=== PATIENT | male | born 1960 | race Caucasian/White ===

== ENCOUNTER → 2017-01-31 | Outpatient (CLI) | payer BC ==
[~2017-01-31] MED LIST: LISI10TA6 PO; [UNRECOGNIZED DRUG - OTHER]
[2017-01-31 07:23] LABS: Basophils # (auto) 0.1 uL; Basophils % (auto) 0.7 % (0.0-2.0); Eosinophils # (auto) 0.3 uL; Eosinophils % (auto) 2.6 % (0.0-7.0); Hemoglobin 16.3 g/dL (13.5-17.5); Lymphocytes % (auto) 28.8 % (10.0-50.0); Mean Corpuscular Hemoglobin 27.7 pg (28.0-32.0); Mean Corpuscular Hgb Conc. 33.2 g/dL (32.0-36.0); Mean Corpuscular Volume 83.3 fL (80.0-100.0); Mean Platelet Volume 7.4 fL (6.9-10.8); Monocytes % (auto) 9.2 % (0.0-12.0); Neutrophils # (auto) 6.1 uL; Neutrophils % (auto) 58.7 % (37.0-80.0); Nucleated Red Blood Cells % 0.1 %; Platelet Count (auto) 276 10^3/uL (140-450); Red Cell Distribution Width 13.9 % (11.8-14.3); White Blood Cell 10.4 10^3/uL (4.4-10.8)
[2017-01-31 07:59] LABS: Urine Bilirubin Negative (Negative); Urine Blood Negative /uL (Negative); Urine Color Yellow (Yellow); Urine Glucose Normal (Normal); Urine Ketone Negative (Negative); Urine Mucus FEW (None Seen); Urine Nitrite Negative (Negative); Urine RBC <1 /hpf (0 - 3); Urine Urobilinogen Normal (Negative); Urine pH 5.5 (5.0-8.0)
[2017-01-31 08:35] LABS: Albumin 4.1 g/dL (3.4-5.0); BUN/Creatinine Ratio 14.1; Bilirubin, Total 0.4 mg/dL (0.2-1.0); Calcium 9.1 mg/dL (8.5-10.1); Total Protein 7.6 g/dL (6.4-8.2)
== END | disposition home or self-care (01) ==
LOC: LAB 07:02
PROVIDERS: ATTEND Obstetrics & Gynecology
DX: E78.2 Mixed hyperlipidemia (principal); I10 Essential (primary) hypertension; R53.83 Other fatigue
CPT/HCPCS: 36415; 80053; 80061; 81001; 84153; 84443; 85025; 87086

== ENCOUNTER → 2017-12-30 | Outpatient (CLI) | payer BC ==
[2017-12-30 08:04] LABS: Basophils # (auto) 0.1 uL; Basophils % (auto) 0.6 % (0.0-2.0); Eosinophils # (auto) 0.3 uL; Eosinophils % (auto) 3.8 % (0.0-7.0); Hemoglobin 15.8 g/dL (13.5-17.5); Lymphocytes # (auto) 2.9 uL; Lymphocytes % (auto) 36.3 % (10.0-50.0); Mean Corpuscular Hemoglobin 27.5 pg (28.0-32.0); Mean Corpuscular Volume 83.5 fL (80.0-100.0); Monocytes # (auto) 0.9 uL; Neutrophils # (auto) 3.8 uL; Neutrophils % (auto) 48.3 % (37.0-80.0); Nucleated Red Blood Cells % 0.1 %; Platelet Count (auto) 263 10^3/uL (140-450); Red Blood Cells 5.75 10^6/uL (4.5-5.90); Red Cell Distribution Width 14.2 % (11.8-14.3); White Blood Cell 7.9 10^3/uL (4.4-10.8)
[2017-12-30 08:09] LABS: Urine Bacteria NONE SEEN /hpf (None Seen); Urine Blood Negative /uL (Negative); Urine Mucus FEW (None Seen); Urine Specific Gravity 1.022 (1.001-1.035); Urine WBC 1 /hpf (0 - 3)
[2017-12-30 08:55] LABS: Calcium 8.9 mg/dL (8.5-10.1)
[2017-12-30 09:01] LABS: Bilirubin, Total 0.5 mg/dL (0.2-1.0); Total Protein 7.3 g/dL (6.4-8.2)
[2017-12-30 10:52] LABS: BUN/Creatinine Ratio 17.6
== END | disposition home or self-care (01) ==
LOC: LAB 07:36
PROVIDERS: ATTEND Family Medicine
DX: E55.9 Vitamin D deficiency, unspecified (principal); I10 Essential (primary) hypertension; E78.2 Mixed hyperlipidemia
CPT/HCPCS: 36415; 80053; 80061; 81001; 82306; 82607; 83036; 84443; 85025

== ENCOUNTER → 2018-08-16 | Outpatient (CLI) | payer BC ==
[~2018-08-16] VITALS: Ht 162.6 cm; Wt 93.0 kg
[~2018-08-16] MED LIST changes: +ADENOSINE 78 MG in GIVE UN-DILUTED 0 ML IV STA
== END | disposition home or self-care (01) ==
LOC: XY 07:33
PROVIDERS: ATTEND Internal Medicine
DX: R07.9 Chest pain, unspecified (principal); R00.0 Tachycardia, unspecified; I10 Essential (primary) hypertension
CPT/HCPCS: 78452; 93017; 93306; A9500; J0153

== ENCOUNTER → 2018-12-26 | Outpatient (CLI) | payer BC ==
[~2018-12-26] MED LIST changes: -ADENOSINE 78 MG in GIVE UN-DILUTED 0 ML IV STA
[2018-12-26 10:42] LABS: Urine WBC None Seen /hpf (0 - 3)
[2018-12-26 10:57] LABS: Basophils # (auto) 0.1 uL; Basophils % (auto) 0.8 % (0.0-2.0); Eosinophils # (auto) 0.3 uL; Eosinophils % (auto) 3.3 % (0.0-7.0); Hematocrit 50.4 % (41.0-53.0); Hemoglobin 16.4 g/dL (13.5-17.5); Lymphocytes # (auto) 2.6 uL; Lymphocytes % (auto) 32.4 % (10.0-50.0); Mean Corpuscular Hemoglobin 27.4 pg (28.0-32.0); Mean Corpuscular Hgb Conc. 32.5 g/dL (32.0-36.0); Mean Corpuscular Volume 84.2 fL (80.0-100.0); Monocytes # (auto) 0.8 uL; Monocytes % (auto) 9.7 % (0.0-12.0); Neutrophils # (auto) 4.3 uL; Neutrophils % (auto) 53.8 % (37.0-80.0); Nucleated Red Blood Cells % 0.1 %; Platelet Count (auto) 251 10^3/uL (140-450); Red Blood Cells 5.99 10^6/uL (4.5-5.90); Red Cell Distribution Width 14.2 % (11.8-14.3); White Blood Cell 8.1 10^3/uL (4.4-10.8)
[2018-12-26 10:58] LABS: Urine Bacteria NONE SEEN /hpf (None Seen); Urine Blood Negative /uL (Negative); Urine Specific Gravity 1.017 (1.001-1.035)
[2018-12-26 11:24] LABS: Albumin 4.1 g/dL (3.4-5.0); Potassium 4.6 mmol/L (3.5-5.1)
[2018-12-26 11:33] LABS: BUN/Creatinine Ratio 14.3; Bilirubin, Total 0.5 mg/dL (0.2-1.0); Calcium 9.2 mg/dL (8.5-10.1); Total Protein 7.6 g/dL (6.4-8.2)
== END | disposition home or self-care (01) ==
LOC: LAB 10:04
PROVIDERS: ATTEND Family Medicine
DX: E78.2 Mixed hyperlipidemia (principal); I10 Essential (primary) hypertension; R00.0 Tachycardia, unspecified; E66.9 Obesity, unspecified
CPT/HCPCS: 36415; 80053; 80061; 81001; 84153; 85025

== ENCOUNTER → 2019-10-01 | Outpatient (CLI) | payer BC ==
[2019-10-01 08:22] LABS: Basophils # (auto) 0.1 10 ^3/uL (0-0.2); Basophils % (auto) 1.1 % (0.0-2.0); Eosinophils # (auto) 0.3 10 ^3/uL (0-0.8); Eosinophils % (auto) 4.6 % (0.0-7.0); Hemoglobin 15.5 g/dL (13.5-17.5); Lymphocytes # (auto) 1.9 10 ^3/uL (0.4-5.4); Lymphocytes % (auto) 29.2 % (10.0-50.0); Mean Corpuscular Hemoglobin 27.3 pg (28.0-32.0); Mean Corpuscular Hgb Conc. 32.3 g/dL (32.0-36.0); Mean Corpuscular Volume 84.6 fL (80.0-100.0); Monocytes % (auto) 15.1 % (0.0-12.0); Neutrophils # (auto) 3.2 10 ^3/uL (1.6-8.6); Platelet Count (auto) 203 10^3/uL (140-450); Red Blood Cells 5.67 10^6/uL (4.5-5.90); Red Cell Distribution Width 13.8 % (11.8-14.3); White Blood Cell 6.5 10^3/uL (4.4-10.8)
[2019-10-01 09:19] LABS: Albumin 3.7 g/dL (3.4-5.0); Calcium 9.1 mg/dL (8.5-10.1); Potassium 4.4 mmol/L (3.5-5.1)
[2019-10-01 09:24] LABS: BUN/Creatinine Ratio 18.1; Bilirubin, Total 0.4 mg/dL (0.2-1.0); Total Protein 7.2 g/dL (6.4-8.2)
== END | disposition home or self-care (01) ==
LOC: LAB 08:10
PROVIDERS: ATTEND Family Medicine
DX: I10 Essential (primary) hypertension (principal); E78.2 Mixed hyperlipidemia; K21.9 Gastro-esophageal reflux disease without esophagitis; E55.9 Vitamin D deficiency, unspecified
CPT/HCPCS: 36415; 80053; 80061; 82306; 85025

== ENCOUNTER → 2021-03-25 | Outpatient (CLI) | payer BC ==
[~2021-03-25] MED LIST changes: +LISI-716 PO; -LISI10TA6 PO
[2021-03-25 09:29] LABS: Basophils # (auto) 0 10 ^3/uL (0-0.2); Basophils % (auto) 0.6 % (0.0-2.0); Eosinophils # (auto) 0.2 10 ^3/uL (0-0.8); Eosinophils % (auto) 2.9 % (0.0-7.0); Hematocrit 45.3 % (41.0-53.0); Hemoglobin 15.2 g/dL (13.5-17.5); Lymphocytes # (auto) 2.5 10 ^3/uL (0.4-5.4); Lymphocytes % (auto) 34.5 % (10.0-50.0); Mean Corpuscular Hemoglobin 27.9 pg (28.0-32.0); Mean Corpuscular Hgb Conc. 33.6 g/dL (32.0-36.0); Mean Corpuscular Volume 83.1 fL (80.0-100.0); Monocytes # (auto) 0.8 10 ^3/uL (0-1.3); Monocytes % (auto) 10.7 % (0.0-12.0); Neutrophils # (auto) 3.7 10 ^3/uL (1.6-8.6); Neutrophils % (auto) 51.3 % (37.0-80.0); Nucleated Red Blood Cells % 0.2 %; Red Blood Cells 5.45 10^6/uL (4.5-5.90); Red Cell Distribution Width 13.6 % (11.8-14.3); White Blood Cell 7.3 10^3/uL (4.4-10.8)
[2021-03-25 09:59] LABS: Urine Bacteria NONE SEEN /hpf (None Seen); Urine Blood Negative /uL (Negative); Urine Mucus FEW (None Seen); Urine Specific Gravity 1.019 (1.001-1.035); Urine WBC 1 /hpf (0 - 3)
[2021-03-25 11:19] LABS: BUN/Creatinine Ratio 15.3; Calcium 9.1 mg/dL (8.5-10.1); Potassium 4.3 mmol/L (3.5-5.1)
[2021-03-25 11:48] LABS: Bilirubin, Total 0.4 mg/dL (0.2-1.0); Total Protein 7.1 g/dL (6.4-8.2)
== END | disposition home or self-care (01) ==
LOC: LAB 08:43
PROVIDERS: ATTEND Family Medicine
DX: E78.2 Mixed hyperlipidemia (principal); I10 Essential (primary) hypertension; K21.9 Gastro-esophageal reflux disease without esophagitis; E55.9 Vitamin D deficiency, unspecified; E66.9 Obesity, unspecified
CPT/HCPCS: 36415; 80053; 80061; 81001; 82306; 84153; 85025

== ENCOUNTER → 2021-05-06 | Outpatient (CLI) | payer BC | END | disposition home or self-care (01) | LOC: LAB 12:24 | PROVIDERS: ATTEND Student in an Organized Health Care Education/Training Program | DX: Z00.00 Encounter for general adult medical examination without abnormal findings (principal) | CPT/HCPCS: 82274 ==

== ENCOUNTER → 2022-02-11 | Outpatient (CLI) | payer BC ==
[2022-02-11 08:57] LABS: Urine Blood Negative /uL (Negative); Urine Specific Gravity 1.015 (1.001-1.035)
[2022-02-11 08:58] LABS: Basophils # (auto) 0.1 10 ^3/uL (0-0.2); Basophils % (auto) 0.7 % (0.0-2.0); Eosinophils # (auto) 0.2 10 ^3/uL (0-0.8); Hematocrit 49.1 % (41.0-53.0); Hemoglobin 15.9 g/dL (13.5-17.5); Lymphocytes # (auto) 3.3 10 ^3/uL (0.4-5.4); Lymphocytes % (auto) 41.2 % (10.0-50.0); Mean Corpuscular Hgb Conc. 32.4 g/dL (32.0-36.0); Mean Corpuscular Volume 83.4 fL (80.0-100.0); Monocytes # (auto) 0.7 10 ^3/uL (0-1.3); Neutrophils # (auto) 3.7 10 ^3/uL (1.6-8.6); Neutrophils % (auto) 46.1 % (37.0-80.0); Nucleated Red Blood Cells % 0.1 %; Red Blood Cells 5.89 10^6/uL (4.5-5.90); Red Cell Distribution Width 13.7 % (11.8-14.3); White Blood Cell 8.1 10^3/uL (4.4-10.8)
[2022-02-11 10:04] LABS: Potassium 4.1 mmol/L (3.5-5.1)
[2022-02-11 10:12] LABS: Albumin 3.8 g/dL (3.4-5.0); Bilirubin, Total 0.6 mg/dL (0.2-1.0); Calcium 9.6 mg/dL (8.5-10.1); Total Protein 7.5 g/dL (6.4-8.2)
[2022-02-11 10:33] LABS: Free T4 (Free Thyroxine) 1.1 ng/dL (0.89-1.76)
[2022-02-11 10:34] LABS: Prostate Specific Antigen 1.51 ng/mL (0.0-4.0)
[2022-02-11 13:49] LABS: Hepatitis B Surface Antibody Negative (Negative)
[2022-02-11 14:20] LABS: Hepatitis A Total Antibody Positive (Negative)
[2022-02-11 14:42] LABS: Hepatitis C Antibody Negative (Negative)
== END | disposition home or self-care (01) ==
LOC: LAB 08:36
PROVIDERS: ATTEND Internal Medicine
DX: I10 Essential (primary) hypertension (principal)
CPT/HCPCS: 36415; 80053; 80061; 81001; 82043; 82274; 82306; 82607; 83036; 84153; 84439; 84443; 85025; 86704; 86706; 86708; 86803; 87340

== ENCOUNTER → 2022-10-11 | Outpatient (CLI) | payer BC ==
[~2022-10-11] MED LIST changes: -LISI-716 PO; +LISI10TA34 PO
[2022-10-11 06:55] LABS: Basophils # (auto) 0.1 10 ^3/uL (0-0.2); Basophils % (auto) 1.1 % (0.0-2.0); Eosinophils # (auto) 0.4 10 ^3/uL (0-0.8); Eosinophils % (auto) 4.3 % (0.0-7.0); Hematocrit 45.3 % (41.0-53.0); Hemoglobin 15.2 g/dL (13.5-17.5); Lymphocytes # (auto) 3.5 10 ^3/uL (0.4-5.4); Mean Corpuscular Hemoglobin 27.8 pg (28.0-32.0); Mean Corpuscular Hgb Conc. 33.5 g/dL (32.0-36.0); Mean Corpuscular Volume 82.9 fL (80.0-100.0); Monocytes # (auto) 0.9 10 ^3/uL (0-1.3); Monocytes % (auto) 11.3 % (0.0-12.0); Neutrophils # (auto) 3.3 10 ^3/uL (1.6-8.6); Neutrophils % (auto) 40.3 % (37.0-80.0); Nucleated Red Blood Cells % 0.2 %; Red Blood Cells 5.46 10^6/uL (4.5-5.90); White Blood Cell 8.2 10^3/uL (4.4-10.8)
[2022-10-11 07:31] LABS: Cholesterol 178 mg/dL (< 200); HDL Cholesterol 35 mg/dL (40-59); LDL Cholesterol 111 mg/dL (< 100); Triglycerides 205 mg/dL (< 150)
[2022-10-11 07:35] LABS: Albumin 3.5 g/dL (3.4-5.0); Calcium 8.6 mg/dL (8.5-10.1); Potassium 3.9 mmol/L (3.5-5.1)
[2022-10-11 07:38] LABS: BUN/Creatinine Ratio 18.6 (10.0-20.0); Bilirubin, Total 0.4 mg/dL (0.2-1.0); Total Protein 6.6 g/dL (6.4-8.2)
== END | disposition home or self-care (01) ==
LOC: LAB 06:39
PROVIDERS: ATTEND Internal Medicine
DX: I10 Essential (primary) hypertension (principal)
CPT/HCPCS: 36415; 80053; 80061; 82306; 82607; 83036; 85025

== ENCOUNTER 2023-03-16 13:07 | Day surgery (SDC) | payer BC ==
[2023-03-11 09:47] LABS: Basophils # (auto) 0.1 10 ^3/uL (0-0.2); Basophils % (auto) 0.6 % (0.0-2.0); Eosinophils # (auto) 0.3 10 ^3/uL (0-0.8); Eosinophils % (auto) 3.1 % (0.0-7.0); Hematocrit 47.2 % (41.0-53.0); Hemoglobin 15.5 g/dL (13.5-17.5); Lymphocytes # (auto) 2.9 10 ^3/uL (0.4-5.4); Mean Corpuscular Hemoglobin 27.5 pg (28.0-32.0); Mean Corpuscular Hgb Conc. 32.8 g/dL (32.0-36.0); Mean Corpuscular Volume 83.9 fL (80.0-100.0); Monocytes # (auto) 0.8 10 ^3/uL (0-1.3); Monocytes % (auto) 8.5 % (0.0-12.0); Neutrophils # (auto) 5.1 10 ^3/uL (1.6-8.6); Neutrophils % (auto) 55.8 % (37.0-80.0); Red Blood Cells 5.63 10^6/uL (4.5-5.90); Red Cell Distribution Width 13.8 % (11.8-14.3); White Blood Cell 9.1 10^3/uL (4.4-10.8)
[2023-03-11 10:16] LABS: INR 1.02 (0.9-1.15); Partial Thromboplastin Time 29.3 SEC (24.5-34.5); Prothrombin Time 10.7 sec (9.3-11.8)
[2023-03-11 11:02] LABS: Alanine Aminotransferase 19 U/L (7-40); Albumin 4.4 g/dL (3.2-4.8); Alkaline Phosphatase 90 U/L (46-116); Anion Gap 9 (5-15); Aspartate Aminotransferase 17 U/L (13-40); BUN/Creatinine Ratio 9.3 (10.0-20.0); Blood Urea Nitrogen 8 mg/dL (9-23); Calcium 9.6 mg/dL (8.5-10.1); Carbon Dioxide 24 mmol/L (20-30); Chloride 107 mmol/L (98-107); Glucose 105 mg/dL (74-106); Potassium 4.6 mmol/L (3.5-5.1); Sodium 140 mmol/L (136-145)
[2023-03-11 11:03] LABS: Bilirubin, Total 0.4 mg/dL (0.2-1.0); Total Protein 6.8 g/dL (5.7-8.2)
[~2023-03-16] VITALS: Ht 165.1 cm; Wt 91.6 kg
[~2023-03-16 13:07] MED LIST changes: +PANT40TA2 PO; +SIMV40TA18 PO; -[UNRECOGNIZED DRUG - OTHER]
[2023-03-16] MEDS ORDERED: SODIUM CHLORIDE LOCK 10 ML ONE (13:49)
[2023-03-16] MEDS ORDERED: MIDAZOLAM HCL 5 MG/ML-1ML VIAL ONE (13:49)
[2023-03-16] MEDS ORDERED: fentaNYL CITRATE 100 MCG/2 ML VL ONE (13:50)
[2023-03-16 14:14] VITALS: PULSE 70; RESP 14; O2SAT 99
[2023-03-16] MEDS: diphenhdrAMINE HCL 50 MG/1 ML VL ONE ×2 (14:20→14:23)
[2023-03-16 14:40] VITALS: PULSE 76; RESP 15; O2SAT 97
[2023-03-16 15:10] VITALS: BP 129/88; PULSE 72; RESP 10; O2SAT 95
== END 2023-03-16 15:30 | disposition home or self-care (01) ==
LOC: GI 13:07
PROVIDERS: ATTEND Internal Medicine Gastroenterology
DX: K92.1 Melena (principal); K64.0 First degree hemorrhoids; K64.4 Residual hemorrhoidal skin tags; K63.5 Polyp of colon; K62.89 Other specified diseases of anus and rectum; K52.9 Noninfective gastroenteritis and colitis, unspecified
CPT/HCPCS: 36415; 45380; 80053; 85025; 85610; 85730; 88305; J1200; J2250; J3010; J7030; 99152

== ENCOUNTER 2025-01-16 12:08 | Outpatient (CLI) | payer BC ==
[2025-01-16 12:49] LABS: Hematocrit 49.4 % (41.0-53.0); Hemoglobin 16.5 g/dL (13.5-17.5); Mean Corpuscular Hemoglobin 27.7 pg (28.0-32.0); Mean Corpuscular Volume 83.0 fL (80.0-100.0); Nucleated Red Blood Cells % 0.1 %
[2025-01-16 13:07] LABS: Cholesterol 179 mg/dL (< 200); HDL Cholesterol 40 mg/dL (40-59); Triglycerides 196 mg/dL (< 150)
[2025-01-16 13:08] LABS: Urine Protein, UAD Negative (Negative)
== END 2025-01-16 17:00 | disposition home or self-care (01) ==
LOC: LAB 12:08
PROVIDERS: ATTEND Internal Medicine
DX: I10 Essential (primary) hypertension (principal)
CPT/HCPCS: 36415; 80061; 81001; 82043; 83036; 84153; 84403; 84443; 85025

== ENCOUNTER 2025-02-01 02:46 | Inpatient (IN) | payer BC ==
[~2025-02-01] VITALS: Ht 165.1 cm; Wt 95.0 kg
[2025-02-01] VITALS (8 sets, daily range): BP systolic 114–137; BP diastolic 74–98; PULSE 69–80; RESP 13–18; TEMP 98.4–99.2; O2SAT 95–97
--- NOTE | 2025-02-01 03:27 | ED.PDOC ---
History of Present Illness HPI Comments 64-year-old male who came to ER for shortness of breath. Patient states 2 days ago, he started experiencing urinary symptoms, urinary frequency and dribbling. Noted low-grade fever to 100.7 F, self-medicated with Tylenol. At around 2:00 a.m. today, patient woke up due to sudden-onset shortness of breath, chills, body aches and drowsiness. Patient works as a straight truck driver. REVIEW OF SYSTEMS: General: (+) fever, no chills, or fatigue HEENT: No sore throat, no earache, no congestion, no neck pain. Cardiac: No chest pain. No palpitations. Lungs: (+) shortness of breath, no cough. GI: No nausea, no vomiting, no diarrhea, no constipation, no abdominal pain : No dysuria, (+) frequency, or urgency. No hematuria. Musculoskeletal: No joint pain , no joint swelling, no extremity edema. Skin: No rash, no itching. Neuro: No headache, no dizziness, no weakness EXAM: General: Awake, alert and oriented. No acute distress. Skin: Skin in warm, dry and intact. Appropriate color for ethnicity. HEENT: The head is normocephalic and atraumatic. Conjunctivae are clear without exudates or hemorrhage. Sclera is non-icteric. EOM are intact. No signs of nystagmus. Eyelids are normal in appearance without swelling or lesions. Oral mucosa is pink and moist Neck: The neck is supple with normal range of motion. No JVD. Cardiac: Rapid rate, regular rhythm. No murmurs, gallops, or rubs are auscultated. Respiratory: No signs of respiratory distress. Lung sounds are clear in all lobes bilaterally without rales, rhonchi, or wheezes. Abdominal: Abdomen is soft, non-tender without distention. Bowel sounds are present and normoactive in all four quadrants. Extremities: Upper and lower extremities are atraumatic in appearance without deformity or edema. Neurological: The patient is awake, alert and oriented to person, place, and time with normal speech. Speech is clear. There is no facial asymmetry. Psychiatric: Appropriate mood and affect. Good judgement and insight Chief Complaint: Shortness of Breath Time Seen by MD: 03:26 Reviewed Notes: Nurses Notes Allergies: Coded Allergies: NO KNOWN ALLERGIES (Unverified , 06/26/12) Home Meds Reported Medications Pantoprazole Sodium Sesquihydr (Protonix) 40 Mg Tab, 40 MG PO DAILY, #30 TAB 03/11/23 Simvastatin (Simvastatin) 40 Mg Tab, 40 MG PO QPM, TAB 03/11/23 Lisinopril (Lisinopril) 10 Mg Tab, 10 MG PO 06/26/12 Information Source: Patient Mode of Arrival: Ambulatory Past Medical History PAST MEDICAL HISTORY: High Lipids, HTN Surgical History: Denies all surgeries Family History Family History: Reviewed,noncontributory to illness Social History Smoker: Non-Smoker Alcohol: Denies ETOH Use Drugs: Denies Drug Use Lives In: Home Was a procedure done? Was a procedure done?: No EKG EKG : Pulse Rate (adult): 101 Cardiac Rhythm: ST Differential Dx Considerations may include: Anemia, electrolyte imbalance, urinary tract infection, upper respiratory infection, influenza, viral syndrome X-Ray, Labs, Meds, VS Vital Signs Date Time Temp Pulse Resp B/P (MAP) Pulse Ox O2 Delivery O2 Flow Rate FiO2 02/01/25 04:24 101 02/01/25 04:21 101 02/01/25 02:48 98.7 133 26 160/90 94 98.7 Lab Test 02/01/25 04:04 02/01/25 04:02 02/01/25 03:49 02/01/25 03:04 Range/Units Troponin I High Sensitivity 53 8 </=54 ng/L Lactic Acid Level 2.0 5.5 *H 0.4-2.0 mmol/L Urine Color Brown H Yellow Urine Clarity Ex.turbid Clear Urine pH 5.5 5.0-9.0 Urine Specific [place] 1.027 1.001-1.035 Urine Protein 2+ H Negative Urine Ketones 1+ H Negative Urine Blood 3+ H Negative /uL Urine Nitrite Negative Negative Urine Bilirubin Negative Negative Urine Urobilinogen Normal Negative mg/dL Urine Leukocyte Esterase 3+ Negative /uL Urine RBC 2658 0 - 3 /hpf Urine WBC Clumps Present None Seen /hpf Urine Microscopic WBC 576 H 0-3 /HPF Urine Squamous Epithelial Cells Few <5 /hpf Urine Bacteria None seen None Seen /hpf Urine Hyaline Casts Few 0 - 2 /lpf Urine Mucus Moderate None Seen Urine Glucose Trace Normal mg/dL White Blood Count 11.4 H 4.4-10.8 10^3/uL Red Blood Count 5.64 4.5-5.90 10^6/uL Hemoglobin 15.5 13.5-17.5 g/dL Hematocrit 47.2 41.0-53.0 % Mean Corpuscular Volume 83.6 80.0-100.0 fL Mean Corpuscular Hemoglobin 27.5 L 28.0-32.0 pg Mean Corpuscular Hemoglobin Concent 32.9 32.0-36.0 g/dL Red Cell Distribution Width 13.8 11.8-14.3 % Platelet Count 190 140-450 10^3/uL Mean Platelet Volume 8.4 6.9-10.8 fL Neutrophils (%) (Auto) 76.7 37.0-80.0 % Lymphocytes (%) (Auto) 20.9 10.0-50.0 % Monocytes (%) (Auto) 1.6 0.0-12.0 % Eosinophils (%) (Auto) 0.5 0.0-7.0 % Basophils (%) (Auto) 0.3 0.0-2.0 % Neutrophils # (Auto) 8.7 H 1.6-8.6 10 ^3/uL Lymphocytes # (Auto) 2.4 0.4-5.4 10 ^3/uL Monocytes # (Auto) 0.2 0-1.3 10 ^3/uL Eosinophils # (Auto) 0.1 0-0.8 10 ^3/uL Basophils # (Auto) 0 0-0.2 10 ^3/uL Nucleated Red Blood Cells 0.1 % D-Dimer, Quantitative 0.82 H 0.0-0.49 mg/L FEU Sodium Level 138 136-145 mmol/L Potassium Level 4.0 3.5-5.1 mmol/L Chloride Level 102 98-107 mmol/L Carbon Dioxide Level 20 20-31 mmol/L Anion Gap 16 H 5-15 Blood Urea Nitrogen 17 9-23 mg/dL Creatinine 1.20 0.700-1.30 mg/dL Glomerular Filtration Rate Calc 67 >90 mL/min BUN/Creatinine Ratio 14.2 10.0-20.0 Serum Glucose 142 H 74-106 mg/dL Calcium Level 9.6 8.7-10.4 mg/dL Total Bilirubin 1.1 H 0.2-1.0 mg/dL Aspartate Amino Transferase (AST) 17 13-40 U/L Alanine Aminotransferase (ALT) 16 7-40 U/L Alkaline Phosphatase 108 46-116 U/L B-Type Natriuretic Peptide 38.43 0-100 pg/mL Total Protein 7.5 5.7-8.2 g/dL Albumin 4.6 3.2-4.8 g/dL CHEST RADIOGRAPH Indication: cp Technique: Single frontal view of the chest was obtained Comparison: None FINDINGS: Lines and Tubes: None Lungs: No focal consolidation. Pleura: No effusion. No pneumothorax. Cardiomediastinal contours: Unremarkable Bones: No acute osseous abnormality. IMPRESSION: 1. No acute cardiopulmonary disease. Time of 1ST Reevaluation: 03:18 Reevaluation 1ST: Unchanged Patient Education/Counseling: Need For Follow Up Family Education/Counseling: No Family Present Change of Shift?: Yes (Signed out to Dr. Bass pending CT angiogram results and disposition.) SEPSIS Sepsis Screen Date sepsis recognized/suspect: Feb 01, 2025 Time Sepsis recognized/suspect: 250 Recent Procedure: No On Antibiotic Therapy: No Respiratory Rate >20: Yes Heart Rate >90: Yes Temp<36 C (96.8 F) or >38.3 C: No SBP <90 or MAP <65 mmHG: No New Acute Mental Status Change: No Is the patient on CPAP, BIPAP,: No Physician Orders Blood Culture (02/01/25 02:53) Chest Xray 1 View (02/01/25 03:33) Vital Signs Q1HR (02/01/25 03:33) Covid19 Antigen Lisa (02/01/25 ) Rapid Influenza A&B (02/01/25 03:33) Electrocardigram (02/01/25 04:33) Electrocardigram (02/01/25 06:33) Troponin-I Hs (02/01/25 06:33) Ct Angio Chest Contrast (02/01/25 04:48) Vital Signs Date Time Temp Pulse Resp B/P (MAP) Pulse Ox O2 Delivery O2 Flow Rate FiO2 02/01/25 04:24 101 02/01/25 04:21 101 02/01/25 02:48 98.7 133 26 160/90 94 98.7 Laboratory Tests Test 02/01/25 03:04 02/01/25 04:02 Lactic Acid Level 5.5 mmol/L (0.4-2.0) *H 2.0 mmol/L (0.4-2.0) White Blood Count 11.4 10^3/uL (4.4-10.8) H Critical Care Note Critical Care Time?: No Stability Stability form required: No Heart Score Heart Score: Heart Score Response (Comments) Value History N/A 0 EKG N/A 0 Age N/A 0 Risk Factors N/A 0 Troponin N/A 0 Total 0 I personally scribed for THADDEUS RENTERIA MD ([email or web address]) on 02/01/25 at 03:27. Electronically submitted by Errol Black ([employer]). I personally scribed for THADDEUS RENTERIA MD ([email or web address]) on 02/01/25 at 04:24. Electronically submitted by Errol Black ([employer]). I personally scribed for THADDEUS RENTERIA MD ([email or web address]) on 02/01/25 at 04:50. Electronically submitted by Errol Black ([employer]). THADDEUS RENTERIA MD Feb 01, 2025 03:27
[2025-02-01 03:40] LABS: Alanine Aminotransferase 16 U/L (7-40); Albumin 4.6 g/dL (3.2-4.8); Alkaline Phosphatase 108 U/L (46-116); Anion Gap 16 (5-15); BUN/Creatinine Ratio 14.2 (10.0-20.0); Blood Urea Nitrogen 17 mg/dL (9-23); Calcium 9.6 mg/dL (8.7-10.4); Carbon Dioxide 20 mmol/L (20-31); Chloride 102 mmol/L (98-107); Potassium 4.0 mmol/L (3.5-5.1); Sodium 138 mmol/L (136-145); Total Protein 7.5 g/dL (5.7-8.2)
[2025-02-01 03:41] LABS: Bilirubin, Total 1.1 mg/dL (0.2-1.0)
[2025-02-01 03:43] LABS: Hematocrit 47.2 % (41.0-53.0); Hemoglobin 15.5 g/dL (13.5-17.5); Mean Corpuscular Hemoglobin 27.5 pg (28.0-32.0); Mean Corpuscular Volume 83.6 fL (80.0-100.0); Nucleated Red Blood Cells % 0.1 %
[2025-02-01 03:46] LABS: Glucose 142 mg/dL (74-106); Lactic Acid w/Reflex 5.5 mmol/L (0.4-2.0)
--- NOTE | 2025-02-01 04:05 | DVH ---
CHEST RADIOGRAPH Indication: cp Technique: Single frontal view of the chest was obtained Comparison: None FINDINGS: Lines and Tubes: None Lungs: No focal consolidation. Pleura: No effusion. No pneumothorax. Cardiomediastinal contours: Unremarkable Bones: No acute osseous abnormality. IMPRESSION: 1. No acute cardiopulmonary disease.
--- NOTE | 2025-02-01 04:22 | ECG ---
[facility] Test Date: 2025-02-01 Test Time: 04:21:06 Pat Name: SABINE AGUILAR Department: ED Room: [address] [place] [address] Gender: M Service Desk Associate: ROLANDO : 1960 Requested By: THADDEUS RENTERIA Order Number: [id number] Reading MD: Dallas Hurd Measurements Intervals [place] Rate: 101 P: 3 PA: 163 QRS: 10 QRSD: 102 T: 20 QT: 338 QTc: 439 Interpretive Statements Sinus tachycardia Abnormal R-wave progression, late transition Electronically Signed On 02-01-2025 9:10:55 PST by Dallas Hurd Please click the below link to view image of tracing.
[2025-02-01 04:26] LABS: Urine Protein, UAD 2+ (Negative); Urine WBC Clumps PRESENT /hpf (None Seen)
--- NOTE | 2025-02-01 06:34 | DVH ---
CTA Chest with intravenous contrast INDICATION: Shortness of br. Elevated D-dimer, rule out pulmonary embolism. COMPARISON: XY CHEST XRAY 1 VIEW on DOS: 02/01/25 TECHNIQUE: Multidetector spiral CTA of the chest was performed of the chest with 100 cc of omnipaque 350 intravenous contrast. PULMONARY ANGIOGRAPHY PROTOCOL was utilized using a bolus-tracking technique centered on the main pulmonary artery. Coronal and sagittal multiplanar and MIP reformats were performed. Radiation Dose : 1. Chest: CTDI volume is 26.97 mGy. Dose-length product is 2.89 mGy*cm The dose indicators for CT are the volume Computed Tomography (CT) Dose Index (CTDIvol) and the Dose Length Product (DLP), and are measured in units of mGy and mGy-cm, respectively. These indicators are not patient dose, but values generated from the CT scanner acquisition factors. The report includes radiation exposure data for exposures received during this examination. FINDINGS: Pulmonary artery: No central, lobar or proximal segmental pulmonary embolus. Normal size main pulmonary artery. Lower neck: Unremarkable. Lungs: No suspicious lung nodule. No airspace disease. Central airways: Patent. Pleura: No pneumothorax. No pleural effusions. Heart/Vascular Structures: The heart is normal in size. No pericardial effusion. Thoracic aorta is normal in caliber. No aneurysm or dissection. Lymph Nodes: No mediastinal or hilar lymphadenopathy. Esophagus: Grossly unremarkable. Musculoskeletal: Unremarkable. Body wall: Unremarkable. Upper abdomen: Unremarkable. IMPRESSION: 1. No evidence of pulmonary embolism. 2. No acute or significant intrathoracic abnormalities.
[2025-02-01] MEDS: AZITHROMYCIN 250 MG TAB PO ONE ×2 (07:05→07:15)
--- NOTE | 2025-02-01 07:11 | DVHHPRES ---
History of Present Illness Resident Creating Document: WHITNEY ERNST RESIDENT History of Present Illness This is a 64-year-old male with past medical history of hypertension, hyperlipidemia presented to the ED with a chief complaint of fever, chills, burning sensation and blood in the urine for last 2 days prior to this visit. Patient States that he started having fever and chills, highest temperature recorded in home at more than 101, frequency, burning sensation in the urine and 1 episodes of blood in the urine. He also complaint of left leg pain, cough and shortness of breath for the same duration. He denies chest pain, hemoptysis, abdominal pain, nausea, vomiting, recent positive sick contact. PCP: Dr. Hylton Past Medical History Hypertension, hyperlipidemia Past Surgical History Denies any surgical history Family History No significant family history Past Social History Lives with family Nonsmoker, nonalcoholic and never tried any drugs Review of Systems Constitutional: Yes: Fever; No: Chills, Sweats, Weakness, Malaise, Other Eyes: No: Pain, Vision change, Conjunctivae inflammation, Eyelid inflammation, Other, Redness ENT: No: Ear pain, Ear discharge, Nose pain, Nose discharge, Nose congestion, Mouth pain, Mouth swelling, Throat pain, Throat swelling, Other Respiratory: Cough, Shortness of breath Cardiovascular: No: Chest Pain, Palpitations, Orthopnea, Paroxysmal Noc. Dyspnea, Edema, Lt Headedness, Other Gastrointestinal: No: Nausea, Vomiting, Abdominal Pain, Diarrhea, Constipation, Melena, Hematochezia, Other Genitourinary: Dysuria, Frequency; No Incontinence; Hematuria; No Retention, No Other Musculoskeletal: No: other, neck pain, shoulder pain, arm pain, back pain, hand pain, leg pain, foot pain Skin: No: Rash, Lesions, Jaundice, Bruising, Other Neurological: No: Weakness, Numbness, Incoordination, Change in speech, Confus ion, Seizures, Other Allergies: Coded Allergies: NO KNOWN ALLERGIES (Unverified , 06/26/12) Exam Vital Signs Vital Signs Date Time Temp Pulse Resp B/P (MAP) Pulse Ox O2 Delivery O2 Flow Rate FiO2 02/01/25 04:24 101 02/01/25 02:48 98.7 26 160/90 94 98.7 Exam Physical examination: General Appearance: Alert, Oriented X3, Cooperative, mild distress HEENT: Atraumatic, PERRLA, EOMI, Mucous membrane moist/pink Respiratory: Clear to auscultation, Normal air movement Cardiovascular: Regular rate, Normal S1, Normal S2, No murmurs, no chest wall tenderness Abdominal: Normal bowel sounds, Soft, No tenderness, No hepatospenomegaly, No masses Extremities: No clubbing, No cyanosis, No edema, Normal pulses, No tenderness/swelling Skin: No rashes, No breakdown, No significant lesion Neuro: Normal speech, Strength at 5/5 X4 ext, Normal tone, Sensation intact, Cranial nerves 3-12 NL, Reflexes 2+ Psych/Mental Status: Mental status NL, Mood NL Labs/Xrays Labs Test 02/01/25 06:48 02/01/25 04:02 02/01/25 03:49 02/01/25 03:04 Range/Units Lactic Acid Level 2.0 0.4-2.0 mmol/L Urine Color Brown H Yellow Urine Clarity Ex.turbid Clear Urine pH 5.5 5.0-9.0 Urine Specific [place] 1.027 1.001-1.035 Urine Protein 2+ H Negative Urine Ketones 1+ H Negative Urine Blood 3+ H Negative /uL Urine Nitrite Negative Negative Urine Bilirubin Negative Negative Urine Urobilinogen Normal Negative mg/dL Urine Leukocyte Esterase 3+ Negative /uL Urine RBC 2658 0 - 3 /hpf Urine WBC Clumps Present None Seen /hpf Urine Microscopic WBC 576 H 0-3 /HPF Urine Squamous Epithelial Cells Few <5 /hpf Urine Bacteria None seen None Seen /hpf Urine Hyaline Casts Few 0 - 2 /lpf Urine Mucus Moderate None Seen Urine Glucose Trace Normal mg/dL White Blood Count 11.4 H 4.4-10.8 10^3/uL Red Blood Count 5.64 4.5-5.90 10^6/uL Hemoglobin 15.5 13.5-17.5 g/dL Hematocrit 47.2 41.0-53.0 % Mean Corpuscular Volume 83.6 80.0-100.0 fL Mean Corpuscular Hemoglobin 27.5 L 28.0-32.0 pg Mean Corpuscular Hemoglobin Concent 32.9 32.0-36.0 g/dL Red Cell Distribution Width 13.8 11.8-14.3 % Platelet Count 190 140-450 10^3/uL Mean Platelet Volume 8.4 6.9-10.8 fL Neutrophils (%) (Auto) 76.7 37.0-80.0 % Lymphocytes (%) (Auto) 20.9 10.0-50.0 % Monocytes (%) (Auto) 1.6 0.0-12.0 % Eosinophils (%) (Auto) 0.5 0.0-7.0 % Basophils (%) (Auto) 0.3 0.0-2.0 % Neutrophils # (Auto) 8.7 H 1.6-8.6 10 ^3/uL Lymphocytes # (Auto) 2.4 0.4-5.4 10 ^3/uL Monocytes # (Auto) 0.2 0-1.3 10 ^3/uL Eosinophils # (Auto) 0.1 0-0.8 10 ^3/uL Basophils # (Auto) 0 0-0.2 10 ^3/uL Nucleated Red Blood Cells 0.1 % D-Dimer, Quantitative 0.82 H 0.0-0.49 mg/L FEU Sodium Level 138 136-145 mmol/L Potassium Level 4.0 3.5-5.1 mmol/L Chloride Level 102 98-107 mmol/L Carbon Dioxide Level 20 20-31 mmol/L Anion Gap 16 H 5-15 Blood Urea Nitrogen 17 9-23 mg/dL Creatinine 1.20 0.700-1.30 mg/dL Glomerular Filtration Rate Calc 67 >90 mL/min BUN/Creatinine Ratio 14.2 10.0-20.0 Serum Glucose 142 H 74-106 mg/dL Calcium Level 9.6 8.7-10.4 mg/dL Total Bilirubin 1.1 H 0.2-1.0 mg/dL Aspartate Amino Transferase (AST) 17 13-40 U/L Alanine Aminotransferase (ALT) 16 7-40 U/L Alkaline Phosphatase 108 46-116 U/L B-Type Natriuretic Peptide 38.43 0-100 pg/mL Total Protein 7.5 5.7-8.2 g/dL Albumin 4.6 3.2-4.8 g/dL SEPSIS Sepsis Screen Date sepsis recognized/suspect: Feb 01, 2025 Time Sepsis recognized/suspect: 250 Recent Procedure: No On Antibiotic Therapy: No Respiratory Rate >20: Yes Heart Rate >90: Yes Temp<36 C (96.8 F) or >38.3 C: No SBP <90 or MAP <65 mmHG: No New Acute Mental Status Change: No Is the patient on CPAP, BIPAP,: No Physician Orders Blood Culture (02/01/25 02:53) Chest Xray 1 View (02/01/25 03:33) Vital Signs Q1HR (02/01/25 03:33) Covid19 Antigen Lisa (02/01/25 ) Rapid Influenza A&B (02/01/25 03:33) Electrocardigram (02/01/25 04:33) Electrocardigram (02/01/25 06:33) Troponin-I Hs (02/01/25 06:33) Ct Angio Chest Contrast (02/01/25 04:48) Sodium Chloride 0.9% (02/01/25 07:00) Ceftriaxone 1gm/50ml (Rocephin) (02/02/25 07:00) Admit (02/01/25 06:59) Code Status (02/01/25 06:59) Bilat Lower Dvt (02/01/25 07:00) Sodium Chloride 0.9% (02/01/25 07:00) Ceftriaxone 1gm/50ml (Rocephin) (02/01/25 10:00) Urine Bacterial Culture (02/01/25 07:00) Blood Culture (02/01/25 07:00) Lisinopril Tablet (Zestril Tablet) (02/01/25 10:00) Atorvastatin (Lipitor) (02/01/25 22:00) Enoxaparin Sodium (Lovenox) (02/01/25 10:00) Pantoprazole Tablet (Protonix Tablet) (02/01/25 10:00) Vital Signs Date Time Temp Pulse Resp B/P (MAP) Pulse Ox O2 Delivery O2 Flow Rate FiO2 02/01/25 04:24 101 02/01/25 04:21 101 02/01/25 02:48 98.7 133 26 160/90 94 98.7 Laboratory Tests Test 02/01/25 03:04 02/01/25 04:02 Lactic Acid Level 5.5 mmol/L (0.4-2.0) *H 2.0 mmol/L (0.4-2.0) White Blood Count 11.4 10^3/uL (4.4-10.8) H Medications Medications Dose Ordered Sig/Елена Route Start Time Stop Time Status Last Admin Dose Admin Ceftriaxone Sodium 50 ml @ 100 mls/hr ONCE ONCE IV 02/01/25 04:45 02/01/25 05:14 DC 02/01/25 06:15 100 MLS/HR Assessment/Plan Assessment/Plan Assessment and plan: # Sepsis likely secondary to UTI # Lactic acidosis # Possible NSTEMI type 2 due to above - U/A was consistent with a UTI - pending blood culture, urinary bacterial culture - IV NS at 30 mL/kg bolus - IV ceftriaxone 1 g daily - pending echo # Ruled out PE # Superficial venous thrombosis of the lower extremity - DVT scan of the lower extremity demonstrated non-occlusive thrombus of the superficial femoral vein - Eloquis 5 mg b.i.d. # Hypertensive heart disease with possible chronic diastolic heart failure # Hyperlipidemia - continue lisinopril 10 mg p.o. daily and atorvastatin 40 mg at HS - pending echo # PUD prophylaxis - Protonix 40 mg p.o. daily # DVT prophylaxis - patient is on eloquis Goal of care and code status discussed with the patient for more than 20 minutes full code Plan discussed with Dr. Hylton Plan discussed with: Patient, Daughter, Other My Orders Orders - WHITNEY ERNST RESIDENT Procedure Category Date Status Time Admit ADMIT 02/01/25 Transmitted 06:59 Code Status CODE 02/01/25 Transmitted 06:59 Bilat Lower Dvt US 02/01/25 Logged 07:00 Sodium Chloride 0.9% PHA 02/01/25 Logged 07:00 Ceftriaxone 1gm/50ml PHA 02/01/25 Logged (Rocephin) 10:00 Urine Bacterial VIVIEN 02/01/25 Logged Culture 07:00 Blood Culture VIVIEN 02/01/25 Logged 07:00 Lisinopril Tablet PHA 02/01/25 Logged (Zestril Tablet) 10:00 Atorvastatin (Lipitor) PHA 02/01/25 Logged 22:00 Enoxaparin Sodium PHA 02/01/25 Verified (Lovenox) 10:00 Pantoprazole Tablet PHA 02/01/25 Verified (Protonix Tablet) 10:00 Date of Service: Feb 01, 2025 Billing Provider: MARGARET HYLTON MD Common Visit Codes: 76989-HONYSUP INP/OBS CARE (HIGH) Secondary Visit Codes: 81370-[id number] CARE PLAN 30 MINUTES WHITNEY ERNST Feb 01, 2025 07:11 MARGARET HYLTON MD Feb 04, 2025 11:25
[2025-02-01] MEDS: SODIUM CHLORIDE 0.9% 1,000 ML IV ONE (07:15)
--- NOTE | 2025-02-01 08:17 | DVH ---
Bilateral lower extremity venous duplex Clinical History: rule out DVT Comparison: None Findings: Duplex Doppler evaluation of the deep venous systems of both lower extremities from the common femoral veins to the popliteal veins including color Doppler and spectral/pulsed waveform analysis was performed. RIGHT SIDE: The common femoral vein demonstrates appropriate compressibility and waveform variability. Sluggish flow noted. There is compressibility/patency of the great saphenous vein at the proximal thigh. Sluggish flow noted. There is echogenic material in the distal superficial femoral vein with shows partial compressibility. Proximal and mid superficial femoral vein are patent. The deep femoral vein demonstrates appropriate compressibility and waveform variability. The popliteal vein demonstrates appropriate compressibility and waveform variability. There is normal compressibility at the tibioperoneal trunk. LEFT SIDE: The common femoral vein demonstrates appropriate compressibility and waveform variability. There is compressibility/patency of the great saphenous vein at the proximal thigh. The femoral vein demonstrates appropriate compressibility and waveform variability. The deep femoral vein demonstrates appropriate compressibility and waveform variability. The popliteal vein demonstrates appropriate compressibility and waveform variability. There is normal compressibility at the tibioperoneal trunk. Impression: 1. Nonocclusive thrombus in the distal right superficial femoral vein. The findings were communicated to dr. Garvin at 7:55 a.m. on 02/01/25 by chemical laboratory assistant. 2. No left lower extremity DVT.
[2025-02-01] MEDS: SODIUM CHLORIDE 0.9% 1,850 ML IV ONE (08:26)
[2025-02-01] MEDS: PANTOPRAZOLE 40 MG TAB PO ONE (09:26)
[2025-02-01] MEDS: PANTOPRAZOLE 40 MG TAB PO SCH (09:59)
[2025-02-01] MEDS ORDERED: ENOXAPARIN SOD 40 MG/0.4 ML SYRINGE SC SCH (10:00)
[2025-02-01] MEDS: APIXABAN 5 MG TAB ONE (10:58)
[2025-02-01] MEDS: LISINOPRIL 5 MG TAB ONE (10:58)
[2025-02-01] MEDS: APIXABAN 5 MG TAB PO SCH (11:33)
[2025-02-01] MEDS: LISINOPRIL 5 MG TAB PO SCH (11:34)
[2025-02-01 12:15] LABS: Hematocrit 43.3 % (41.0-53.0); Hemoglobin 14.6 g/dL (13.5-17.5); Mean Corpuscular Hemoglobin 27.8 pg (28.0-32.0); Mean Corpuscular Volume 82.6 fL (80.0-100.0); Nucleated Red Blood Cells % 0.0 %
[2025-02-01 12:36] LABS: Alanine Aminotransferase 13 U/L (7-40); Albumin 4.0 g/dL (3.2-4.8); Alkaline Phosphatase 85 U/L (46-116); Anion Gap 10 (5-15); BUN/Creatinine Ratio 15.9 (10.0-20.0); Blood Urea Nitrogen 14 mg/dL (9-23); Calcium 9.0 mg/dL (8.7-10.4); Carbon Dioxide 24 mmol/L (20-31); Chloride 106 mmol/L (98-107); Glucose 98 mg/dL (74-106); Potassium 4.2 mmol/L (3.5-5.1); Sodium 140 mmol/L (136-145); Total Protein 6.3 g/dL (5.7-8.2)
[2025-02-01 12:37] LABS: Bilirubin, Total 0.7 mg/dL (0.2-1.0)
--- NOTE | 2025-02-01 12:49 | DVH ---
CLINICAL HISTORY: rule out prostate abcess TECHNIQUE: CT of the abdomen and pelvis was performed without IV contrast. This exam was performed according to our departmental dose optimization program. Up-to-date CT equipment and radiation dose reduction techniques are utilized as appropriate. CTDI 21 DLP 1146 COMPARISON: None FINDINGS: Abdomen/Pelvis: The spleen, pancreas, adrenal glands, gallbladder, and prostate gland are unremarkable. There is trace contrast within the collecting system and a small to moderate amount of contrast within the bladder from CTA performed earlier in the day. The bladder demonstrates no focal filling defect. There is diffuse hepatic steatosis. Hypodense left hepatic lobe lesions are incompletely characterized due to lack of IV contrast. The abdominal aorta is normal in course and caliber. There are no significant atherosclerotic calcifications. There are calcifications of the bilateral vas deferens. There is no free intraperitoneal air or fluid. There is no enlarged abdominal pelvic lymph node. There is no bowel wall thickening or dilatation. The appendix is normal. There is mild colonic diverticulosis. There is a small amount of fat within the bilateral inguinal canals. Other: The imaged lower thorax demonstrates breathing changes and mild bilateral lower lung atelectasis. No acute osseous abnormality is evident. Impression: No acute noncontrast CT abnormality in the abdomen / pelvis. Diffuse hepatic steatosis. Colonic diverticulosis. Calcifications of the bilateral vas deferens, usually seen in a setting of diabetes.
[2025-02-01] MEDS: SODIUM CHLORIDE 0.9% 1,000 ML IV SCH (13:02)
--- NOTE | 2025-02-01 14:10 | DVHSR ---
APPROVED REPORT EXAM: Two-dimensional and M-mode echocardiogram with Doppler and color Doppler. Blood Pressure: 160/90 mmHg INDICATION NSTEMI RISK FACTORS Height: 65, Weight: 205 DIMENSIONS LVDd 5.1 (3.8-5.7cm) LA (2D) 3.7 (1.9-4.0cm) Aortic Root 3.9 (2.0-3.7cm) LVDs 3.6 (2.5-4.0cm) LA (MM) (1.9-4.0cm) Aortic Cusp Exc 2.2 (1.5-2.0cm) EF (%) 56.0 (55-70%) Rt. Atrium 3.4 (1.9-4.0cm) Asc. Aorta 3.5 cm Mitral Valve Mitral Mitral Stenosis E wave 0.62m/s MV Mean GR. mmHg A wave 0.76m/s MV Peak GR. mmHg E/A ratio 0.8 2D MVA cm2 DECEL Time 246ms PRESS 1/2 Time 80ms IVRT ms Dop MVA 2.76cm2 Aortic Valve Aortic Valve Aortic Stenosis V1 0.94m/s AO Mean GR. 4mmHg V2 1.30m/s AO Peak GR. 7mmHg LVOT Diameter 2.4 (1.8-2.4cm) Doppler BARBER 3.27cm2 AI P 1/2 Time 327.21ms Pulmonic Valve V2 0.66m/s Conclusion Sinus rhythm. Aortic root enlargement. Left atrial enlargement. Mild aortic sclerosis. EF of 55% with normal RV function. Dopplers unremarkable. Trace aortic insufficiency. No pericardial effusion masses or vegetations.
--- NOTE | 2025-02-01 17:04 | DVHPNRES ---
Progress Note Date Seen: Feb 01, 2025 Resident Creating Document: GAGE BARNETT RESIDENT Has the PT tested + for MRSA If YES, has PT been informed?: No Medical Necessity Reason Pt with a Central, PICC or Fol: No Subjective Review of Systems This is a 64-year-old male with past medical history of hypertension, hyperlipidemia presented to the ED with a chief complaint of fever, chills, burning sensation and blood in the urine for last 2 days prior to this visit. Patient States that he started having fever and chills, highest temperature recorded in home at more than 101, frequency, burning sensation in the urine and 1 episodes of blood in the urine. He also complaint of left leg pain, cough and shortness of breath for the same duration. He denies chest pain, hemoptysis, abdominal pain, nausea, vomiting, recent positive sick contact. PCP: Dr. Hylton Past Medical History Hypertension, hyperlipidemia Past Surgical History Denies any surgical history Family History No significant family history Past Social History Lives with family Nonsmoker, nonalcoholic and never tried any drugs 02/01/25: UA showed hematuria, LE+, CBC leukocytosis, US showed DVT, CT scan with contrast ruled out any prostate abscess, we continue IV AB and therapeutic anticoagulation Objective vital signs Vital Sign Date Time Temp Pulse Resp B/P (MAP) Pulse Ox O2 Delivery O2 Flow Rate FiO2 02/01/25 11:34 117/74 02/01/25 11:29 98.4 69 18 97 98.4 02/01/25 11:05 Room Air* 0 21 medications Current Medications Medications Dose Ordered Sig/Елена Route Start Time Stop Time Status Last Admin Dose Admin Ceftriaxone Sodium 50 ml @ 100 mls/hr DAILY IV 02/02/25 10:00 Lisinopril 10 mg DAILY PO 02/01/25 10:00 02/01/25 11:34 10 MG Atorvastatin Calcium 40 mg HS PO 02/01/25 22:00 Pantoprazole Sodium 40 mg DAILY@0700 PO 02/01/25 07:28 02/01/25 09:59 40 MG Sodium Chloride 1,000 ml @ 100 mls/hr Q10H IV 02/01/25 11:15 02/01/25 13:02 100 MLS/HR Enoxaparin Sodium 90 mg Q12HR SC 02/01/25 22:00 Examination General Appearance: Alert, Oriented X3, Cooperative, mild distress HEENT: Atraumatic, PERRLA, EOMI, Mucous membrane moist/pink Respiratory: Clear to auscultation, Normal air movement Cardiovascular: Regular rate, Normal S1, Normal S2, No murmurs, no chest wall tenderness Abdominal: Normal bowel sounds, Soft, No tenderness, No hepatospenomegaly, No masses Extremities: No clubbing, No cyanosis, No edema, Normal pulses, No tenderness/swelling Skin: No rashes, No breakdown, No significant lesion Neuro: Normal speech, Strength at 5/5 X4 ext, Normal tone, Sensation intact, Cranial nerves 3-12 NL, Reflexes 2+ Psych/Mental Status: Mental status NL, Mood NL laboratory and microbiology Laboratory Tests 02/01/25 11:45 02/01/25 06:48 Test 02/01/25 06:48 Range/Units Serum Glucose 98 74-106 mg/dL Problem List/Assessment/Plan Problem List/Assessment/Plan # Sepsis likely secondary to UTI # Lactic acidosis # Possible NSTEMI type 2 due to above - U/A was consistent with a UTI - blood culture, urinary bacterial culture pending - IV NS - IV ceftriaxone 1 g daily - pending echo # Ruled out PE # DVT of the lower extremity - DVT scan of the lower extremity demonstrated non-occlusive thrombus of the superficial femoral vein - enoxaparin # Hypertensive heart disease with possible chronic diastolic heart failure # Hyperlipidemia - continue lisinopril 10 mg p.o. daily and atorvastatin 40 mg at home - echo: normal # PUD prophylaxis - Protonix 40 mg p.o. daily # DVT prophylaxis - enoxaparin Goal of care and code status discussed with the patient for more than 20 minutes full code Plan discussed with Dr. Cardoso Plan discussed with: Patient, Other (rn) My Orders My Orders Orders - GAGE BARNETT RESIDENT Procedure Category Date Status Time Ct Ab Pel Wo Con-No CT 02/01/25 Resulted Oral Or Iv 11:14 Sodium Chloride 0.9% PHA 02/01/25 In Process 11:15 Enoxaparin Sodium PHA 02/01/25 In Process (Lovenox) 22:00 Cardiac DIET 02/01/25 Transmitted Diet-2gna,Lofat,Lochol Dinner GAGE BARNETT RESIDENT Feb 01, 2025 17:04
[2025-02-01 20:14] LABS: COVID19 ANTIGEN SOFIA FIA NEGATIVE (NEGATIVE)
[2025-02-01] MEDS: ATORVASTATIN 20 MG TAB PO SCH (21:32)
[2025-02-01] MEDS: ENOXAPARIN SOD 100 MG/1 ML SYRINGE SC ONE (21:42)
[2025-02-01] MEDS: ENOXAPARIN SOD 100 MG/1 ML SYRINGE SC SCH (21:47)
[2025-02-02] VITALS (8 sets, daily range): BP systolic 119–127; BP diastolic 74–81; PULSE 69–78; RESP 18; TEMP 98–98.7; O2SAT 93–97
[2025-02-02 07:39] LABS: Hematocrit 42.1 % (41.0-53.0); Hemoglobin 14.2 g/dL (13.5-17.5); Mean Corpuscular Hemoglobin 28.1 pg (28.0-32.0); Mean Corpuscular Volume 83.6 fL (80.0-100.0); Nucleated Red Blood Cells % 0.0 %
[2025-02-02 07:55] LABS: Alanine Aminotransferase 11 U/L (7-40); Albumin 3.9 g/dL (3.2-4.8); Alkaline Phosphatase 75 U/L (46-116); Anion Gap 9 (5-15); BUN/Creatinine Ratio 16.3 (10.0-20.0); Blood Urea Nitrogen 14 mg/dL (9-23); Calcium 9.2 mg/dL (8.7-10.4); Carbon Dioxide 25 mmol/L (20-31); Chloride 106 mmol/L (98-107); Glucose 93 mg/dL (74-106); Potassium 4.3 mmol/L (3.5-5.1); Sodium 140 mmol/L (136-145); Total Protein 6.6 g/dL (5.7-8.2)
[2025-02-02 07:56] LABS: Bilirubin, Total 0.5 mg/dL (0.2-1.0)
[2025-02-02] MEDS ORDERED: APIX5TAB PO (10:10)
[2025-02-02] MEDS ORDERED: CIPR500T4 PO (10:10)
[2025-02-02] MEDS ORDERED: TAMS0.4C39 PO (11:32)
--- NOTE | 2025-02-02 12:00 | DVHPN2 ---
Progress Note Date Seen: Feb 02, 2025 Has the PT tested + for MRSA If YES, has PT been informed?: No Medical Necessity Reason Pt with a Central, PICC or Fol: No Subjective Review of Systems This is a 64-year-old male with past medical history of hypertension, hyperlipidemia presented to the ED with a chief complaint of fever, chills, burning sensation and blood in the urine for last 2 days prior to this visit. Patient States that he started having fever and chills, highest temperature recorded in home at more than 101, frequency, burning sensation in the urine and 1 episodes of blood in the urine. He also complaint of left leg pain, cough and shortness of breath for the same duration. He denies chest pain, hemoptysis, abdominal pain, nausea, vomiting, recent positive sick contact. PCP: Dr. Hylton Past Medical History Hypertension, hyperlipidemia Past Surgical History Denies any surgical history Family History No significant family history Past Social History Lives with family Nonsmoker, nonalcoholic and never tried any drugs 02/01/25: UA showed hematuria, LE+, CBC leukocytosis, US showed DVT, CT scan with contrast ruled out any prostate abscess, we continue IV AB and therapeutic anticoagulation 02/02/25: normal abdomen/pelvis CT scan, WBC improved, we will contine IV AB for 1 more day Objective vital signs Vital Sign Date Time Temp Pulse Resp B/P (MAP) Pulse Ox O2 Delivery O2 Flow Rate FiO2 02/02/25 09:27 123/78 02/02/25 08:59 98.0 69 18 96 98.0 02/02/25 08:00 Room Air* 0 21 Total Intake and Output 02/01/25 02/01/25 02/02/25 15:00 23:00 07:00 Intake Total 1850 ml 450 ml 205 ml Balance 1850 ml 450 ml 205 ml medications Current Medications Medications Dose Ordered Sig/Елена Route Start Time Stop Time Status Last Admin Dose Admin Ceftriaxone Sodium 50 ml @ 100 mls/hr DAILY IV 02/02/25 10:00 02/02/25 09:25 100 MLS/HR Lisinopril 10 mg DAILY PO 02/01/25 10:00 02/02/25 09:27 10 MG Atorvastatin Calcium 40 mg HS PO 02/01/25 22:00 02/01/25 21:32 40 MG Pantoprazole Sodium 40 mg DAILY@0700 PO 02/01/25 07:28 02/02/25 05:21 40 MG Enoxaparin Sodium 90 mg Q12HR SC 02/01/25 22:00 02/02/25 09:26 90 MG Tamsulosin HCl 0.4 mg QPM PO 02/02/25 18:00 Examination General Appearance: Alert, Oriented X3, Cooperative, mild distress HEENT: Atraumatic, PERRLA, EOMI, Mucous membrane moist/pink Respiratory: Clear to auscultation, Normal air movement Cardiovascular: Regular rate, Normal S1, Normal S2, No murmurs, no chest wall tenderness Abdominal: Normal bowel sounds, Soft, No tenderness, No hepatospenomegaly, No masses Extremities: No clubbing, No cyanosis, No edema, Normal pulses, No tenderness/swelling Skin: No rashes, No breakdown, No significant lesion Neuro: Normal speech, Strength at 5/5 X4 ext, Normal tone, Sensation intact, Cranial nerves 3-12 NL, Reflexes 2+ Psych/Mental Status: Mental status NL, Mood NL laboratory and microbiology Laboratory Tests 02/02/25 06:58 Test 02/02/25 06:58 Range/Units Serum Glucose 93 74-106 mg/dL Microbiology Date/Time Source Procedure Growth Status 02/01/25 03:09 Blood Blood Culture - Preliminary NO GROWTH AFTER 24 HOURS OF INCUBATION. Resulted Problem List/Assessment/Plan Problem List/Assessment/Plan # Sepsis likely secondary to UTI # Lactic acidosis # Possible NSTEMI type 2 due to above - U/A was consistent with a UTI - blood culture, urinary bacterial culture - Stop NS - IV ceftriaxone 1 g daily - echo: normal # Ruled out PE # DVT of the lower extremity - DVT scan of the lower extremity demonstrated non-occlusive thrombus of the superficial femoral vein enoxaparin BID # Hypertensive heart disease with possible chronic diastolic heart failure # Hyperlipidemia - continue lisinopril 10 mg p.o. daily and atorvastatin 40 mg at HS at home - echo: normal # PUD prophylaxis - Protonix 40 mg p.o. daily # DVT prophylaxis - patient is enoxaparin Goal of care and code status discussed with the patient for more than 20 minutes full code Plan discussed with Dr. Cardoso Plan discussed with: Patient, Other (daughter ) My Orders My Orders Orders - GAGE BARNETT Procedure Category Date Status Time Enoxaparin Sodium PHA 02/01/25 In Process (Lovenox) 22:00 Cardiac DIET 02/01/25 Transmitted Diet-2gna,Lofat,Lochol Dinner Tamsulosin PHA 02/02/25 In Process Hydrochloride (Flomax) 18:00 Psa Total+% Free LAB 02/01/25 In Process 19:27 Date of Service: Feb 02, 2025 Billing Provider: ROBERTO CARDOSO MD Common Visit Codes: [id number] INP/OBS CARE(HIGH) GAGE BARNETT RESIDENT Feb 02, 2025 12:00
[2025-02-02] MEDS: TAMSULOSIN HYDROCHLORIDE 0.4 MG CAP PO SCH (18:36)
[2025-02-03] VITALS (9 sets, daily range): BP systolic 111–127; BP diastolic 71–80; PULSE 62–77; RESP 14–18; TEMP 98–98.6; O2SAT 94–97
[2025-02-03 07:59] LABS: Alanine Aminotransferase 14 U/L (7-40); Alkaline Phosphatase 75 U/L (46-116); Anion Gap 12 (5-15); BUN/Creatinine Ratio 15.1 (10.0-20.0); Blood Urea Nitrogen 13 mg/dL (9-23); Calcium 9.7 mg/dL (8.7-10.4); Carbon Dioxide 23 mmol/L (20-31); Chloride 105 mmol/L (98-107); Glucose 105 mg/dL (74-106); Hematocrit 44.7 % (41.0-53.0); Hemoglobin 15.1 g/dL (13.5-17.5); Mean Corpuscular Hemoglobin 27.7 pg (28.0-32.0); Mean Corpuscular Volume 81.9 fL (80.0-100.0); Nucleated Red Blood Cells % 0.1 %; Potassium 3.9 mmol/L (3.5-5.1); Sodium 140 mmol/L (136-145); Total Protein 7.1 g/dL (5.7-8.2)
[2025-02-03 08:00] LABS: Albumin 4.3 g/dL (3.2-4.8); Bilirubin, Total 0.5 mg/dL (0.2-1.0)
--- NOTE | 2025-02-03 12:16 | DVHPN2 ---
Subjective Doing better No fever no chills No pain Urine culture shows E coli Changes from previous H/P or p: Changes Eyes: No Pain, No Vision change, No Conjunctivae inflammation, No Eyelid inflammation, No Other, No Redness ENT: No Ear pain, No Ear discharge, No Nose pain, No Nose discharge, No Nose congestion, No Mouth pain, No Mouth swelling, No Throat pain, No Throat swelling, No Other Cardiovascular: No Chest Pain, No Palpitations, No Orthopnea, No Paroxysmal Noc. Dyspnea, No Edema, No Lt Headedness, No Other Respiratory: Cough, Shortness of breath Gastrointestinal: No Nausea, No Vomiting, No Abdominal Pain, No Diarrhea, No Constipation, No Melena, No Hematochezia, No Other Genitourinary: Dysuria, Frequency; No Incontinence; Hematuria; No Retention, No Other Musculoskeletal: No other, No neck pain, No shoulder pain, No arm pain, No back pain, No hand pain, No leg pain, No foot pain Skin: No Rash, No Lesions, No Jaundice, No Bruising, No Other Objective Vitals Vital Signs Date Time Temp Pulse Resp B/P (MAP) Pulse Ox O2 Delivery O2 Flow Rate FiO2 02/03/25 09:00 98.0 67 16 122/76 (91) 95 98.0 02/03/25 08:00 Room Air* 0 21 Intake/Output Intake and Output 02/03/25 07:00 Intake Total 3050 ml Balance 3050 ml Intake Oral 2700 ml IV Total 350 ml # Voids 4 # Bowel Movements 1 General Appearance: Alert, Oriented X3, Cooperative, No acute distress Lungs: Clear to auscultation, Normal air movement Cardiovascular: Regular rate, Normal S1, Normal S2, No murmurs Abdomen: Normal bowel sounds, Soft, No tenderness Extremities: No edema Medications Current Medications Medications Dose Ordered Sig/Елена Route Start Time Stop Time Status Last Admin Dose Admin Ceftriaxone Sodium 50 ml @ 100 mls/hr DAILY IV 02/02/25 10:00 02/03/25 08:51 100 MLS/HR Lisinopril 10 mg DAILY PO 02/01/25 10:00 02/03/25 08:50 10 MG Atorvastatin Calcium 40 mg HS PO 02/01/25 22:00 02/02/25 20:51 40 MG Pantoprazole Sodium 40 mg DAILY@0700 PO 02/01/25 07:28 02/03/25 05:16 40 MG Enoxaparin Sodium 90 mg Q12HR SC 02/01/25 22:00 02/03/25 08:52 90 MG Tamsulosin HCl 0.4 mg QPM PO 02/02/25 18:00 02/02/25 18:36 0.4 MG Laboratory Results Laboratory Tests 02/03/25 06:54 Chemistry Test 02/03/25 06:54 Albumin 4.3 g/dL (3.2-4.8) Calcium Level 9.7 mg/dL (8.7-10.4) Total Protein 7.1 g/dL (5.7-8.2) LFT Test 02/03/25 06:54 Alanine Aminotransferase (ALT) 14 U/L (7-40) Alkaline Phosphatase 75 U/L (46-116) Aspartate Amino Transferase (AST) 23 U/L (13-40) Total Bilirubin 0.5 mg/dL (0.2-1.0) Urinalysis Test 02/01/25 03:49 Urine Color Brown (Yellow) H Urine Clarity Ex.turbid (Clear) Urine pH 5.5 (5.0-9.0) Urine Specific [place] 1.027 (1.001-1.035) Urine Protein 2+ (Negative) H Urine Ketones 1+ (Negative) H Urine Blood 3+ /uL (Negative) H Urine Nitrite Negative (Negative) Urine Bilirubin Negative (Negative) Urine Urobilinogen Normal mg/dL (Negative) Urine Leukocyte Esterase 3+ /uL (Negative) Urine RBC 2658 /hpf (0 - 3) Urine WBC Clumps Present /hpf (None Seen) Urine Microscopic WBC 576 /HPF (0-3) H Urine Squamous Epithelial Cells Few /hpf (<5) Urine Bacteria None seen /hpf (None Seen) Urine Hyaline Casts Few /lpf (0 - 2) Urine Mucus Moderate (None Seen) Urine Glucose Trace mg/dL (Normal) Microbiology Microbiology Date/Time Source Procedure Growth Status 02/01/25 03:49 Voided Urine Urine Culture - Final Escherichia coli Complete 02/01/25 03:09 Blood Blood Culture - Preliminary NO GROWTH AFTER 48 HOURS OF INCUBATION. Resulted Assessment/Plan Assessment/Plan UTI Sepsis due to UTI Lactic acidosis NSTEMI type 2 Right lower extremity DVT Hypertension PLAN: Continue IV antibiotics Rocephin Switch Lovenox to Eliquis Discharge planning for tomorrow PSA is pending Plan discussed with: Patient Date of Service: Feb 03, 2025 Billing Provider: ROBERTO ESPINOZA MD Common Visit Codes: [id number] INP/OBS CARE(HIGH) ROBERTO ESPINOZA MD Feb 03, 2025 12:16
[2025-02-03] MEDS: APIXABAN 5 MG TAB PO SCH (22:06)
[2025-02-04] VITALS (7 sets, daily range): BP systolic 110–126; BP diastolic 67–84; PULSE 66–86; RESP 12–18; TEMP 36.7; O2SAT 95–98
--- NOTE | 2025-02-04 11:47 | DVHDSRES ---
Discharge Summary Date of Admission Resident Creating Document: GAGE BARNETT RESIDENT Feb 01, 2025 at 06:59 Date of Discharge: Feb 04, 2025 Admitting Diagnosis Complicated UTI + DVT Labs/Diagnostic Data: Laboratory Results Test 02/03/25 06:54 02/01/25 19:55 02/01/25 18:49 02/01/25 11:45 White Blood Count 7.6 10^3/uL (4.4-10.8) Red Blood Count 5.45 10^6/uL (4.5-5.90) Hemoglobin 15.1 g/dL (13.5-17.5) Hematocrit 44.7 % (41.0-53.0) Mean Corpuscular Volume 81.9 fL (80.0-100.0) Mean Corpuscular Hemoglobin 27.7 pg (28.0-32.0) Mean Corpuscular Hemoglobin Concent 33.8 g/dL (32.0-36.0) Red Cell Distribution Width 13.7 % (11.8-14.3) Platelet Count 215 10^3/uL (140-450) Mean Platelet Volume 9.0 fL (6.9-10.8) Neutrophils (%) (Auto) 48.3 % (37.0-80.0) Lymphocytes (%) (Auto) 32.9 % (10.0-50.0) Monocytes (%) (Auto) 12.8 % (0.0-12.0) Eosinophils (%) (Auto) 4.9 % (0.0-7.0) Basophils (%) (Auto) 1.1 % (0.0-2.0) Neutrophils # (Auto) 3.7 10 ^3/uL (1.6-8.6) Lymphocytes # (Auto) 2.5 10 ^3/uL (0.4-5.4) Monocytes # (Auto) 1.0 10 ^3/uL (0-1.3) Eosinophils # (Auto) 0.4 10 ^3/uL (0-0.8) Basophils # (Auto) 0.1 10 ^3/uL (0-0.2) Nucleated Red Blood Cells 0.1 % Sodium Level 140 mmol/L (136-145) Potassium Level 3.9 mmol/L (3.5-5.1) Chloride Level 105 mmol/L (98-107) Carbon Dioxide Level 23 mmol/L (20-31) Anion Gap 12 (5-15) Blood Urea Nitrogen 13 mg/dL (9-23) Creatinine 0.86 mg/dL (0.700-1.30) Glomerular Filtration Rate Calc 96 mL/min (>90) BUN/Creatinine Ratio 15.1 (10.0-20.0) Serum Glucose 105 mg/dL (74-106) Calcium Level 9.7 mg/dL (8.7-10.4) Total Bilirubin 0.5 mg/dL (0.2-1.0) Aspartate Amino Transferase (AST) 23 U/L (13-40) Alanine Aminotransferase (ALT) 14 U/L (7-40) Alkaline Phosphatase 75 U/L (46-116) Total Protein 7.1 g/dL (5.7-8.2) Albumin 4.3 g/dL (3.2-4.8) Influenza Type A Antigen Negative (Negative) Influenza Type B Antigen Negative (Negative) SARS-CoV-2 Antigen (Rapid) Negative (NEGATIVE) Troponin I High Sensitivity 156 ng/L (</=54) Test 02/01/25 04:02 02/01/25 03:49 02/01/25 03:04 Lactic Acid Level 2.0 mmol/L (0.4-2.0) Urine Color Brown (Yellow) Urine Clarity Ex.turbid (Clear) Urine pH 5.5 (5.0-9.0) Urine Specific [place] 1.027 (1.001-1.035) Urine Protein 2+ (Negative) Urine Ketones 1+ (Negative) Urine Blood 3+ /uL (Negative) Urine Nitrite Negative (Negative) Urine Bilirubin Negative (Negative) Urine Urobilinogen Normal mg/dL (Negative) Urine Leukocyte Esterase 3+ /uL (Negative) Urine RBC 2658 /hpf (0 - 3) Urine WBC Clumps Present /hpf (None Seen) Urine Microscopic WBC 576 /HPF (0-3) Urine Squamous Epithelial Cells Few /hpf (<5) Urine Bacteria None seen /hpf (None Seen) Urine Hyaline Casts Few /lpf (0 - 2) Urine Mucus Moderate (None Seen) Urine Glucose Trace mg/dL (Normal) D-Dimer, Quantitative 0.82 mg/L FEU (0.0-0.49) B-Type Natriuretic Peptide 38.43 pg/mL (0-100) Other Laboratory Tests 02/03/25 06:54 Brief Hx & Hospital Course: The patient is a 64-year-old male with a history of hypertension and hyperlipidemia who presented to the emergency department with fever, chills, dysuria, and hematuria for two days, along with left leg pain, cough, and shortness of breath. Initial evaluation revealed leukocytosis, urinalysis consistent with urinary tract infection, and ultrasound evidence of a non- occlusive thrombus in the superficial femoral vein. CT imaging ruled out prostate abscess and pulmonary embolism, and echocardiogram was normal. The patient was diagnosed with sepsis likely secondary to UTI, lactic acidosis, and possible type 2 NSTEMI related to sepsis. He was treated with IV ceftriaxone, therapeutic anticoagulation with enoxaparin, and supportive care. Blood and urine cultures were obtained; urine culture grew Escherichia coli, while blood cultures remained negative. WBC count improved during hospitalization. At discharge, the patient was clinically stable. He was transitioned from enoxaparin to apixaban 10 mg twice daily for seven days, then 5 mg twice daily for at least three months, with follow-up by his primary care physician to determine duration. He was instructed to complete a 14-day course of ciprofloxacin and continue home medications including lisinopril, atorvastatin, and Protonix. PSA should be rechecked in the outpatient setting as it may be elevated due to infection. The patient was counseled on signs of bleeding, recurrent fever, or worsening leg pain, and advised to seek immediate care if these occur. Code status was discussed and confirmed as full code. General Appearance: Alert, Oriented X3, Cooperative, mild distress HEENT: Atraumatic, PERRLA, EOMI, Mucous membrane moist/pink Respiratory: Clear to auscultation, Normal air movement Cardiovascular: Regular rate, Normal S1, Normal S2, No murmurs, no chest wall tenderness Abdominal: Normal bowel sounds, Soft, No tenderness, No hepatospenomegaly, No masses Extremities: No clubbing, No cyanosis, No edema, Normal pulses, No tenderness/swelling Skin: No rashes, No breakdown, No significant lesion Neuro: Normal speech, Strength at 5/5 X4 ext, Normal tone, Sensation intact, Cranial nerves 3-12 NL, Reflexes 2+ Psych/Mental Status: Mental status NL, Mood NL Case discussed with Dr Cardoso Condition at Discharge: Stable Final Diagnosis/Problems List # Sepsis likely secondary to UTI # Complicated UTI # Lactic acidosis # Possible NSTEMI type 2 due to above # Ruled out PE # DVT of the lower extremity # Hypertensive heart disease with possible chronic diastolic heart failure # Hyperlipidemia Discharge Disposition: Home Discharge Instruct/Medications Diet: Cardiac 2g Na,low cholest Activity: Light activity Follow Up/Referral: [facility] Hylton Medications: see prescription Scheduled Apixaban Base (Eliquis), 5 MG PO BID Apixaban Base (Eliquis), 10 MG PO BID Ciprofloxacin Hcl (Ciprofloxacin Hcl), 1 TAB PO BID Pantoprazole Sodium Sesquihydr (Protonix), 40 MG PO DAILY, (Reported) Simvastatin (Simvastatin), 40 MG PO QPM, (Reported) Tamsulosin Hcl (Tamsulosin Hcl), 1 CAP PO DAILY Miscellaneous Medications Lisinopril (Lisinopril), 10 MG PO, (Reported) Discharge Statement: "Patient was advised to return to the ER or call 911 if any headaches, dizziness, shortness of breath, chest pain, abdominal pain, bleeding, fevers, or worsening of medical condition. Patient was counseled about treatment plan, medications, possible side effects, patientverbalized understanding. All questions were answered to the best of my ability. This discharge took greater then 30 minutes in planning, reviewing documentation, counseling the patient, and discussing with other team members." ASSESSMENT ASSESSMENT Assessment UTI DVT GAGE BARNETT RESIDENT Feb 04, 2025 11:47
[2025-02-05 03:07] LABS: Prostate Specific Antigen 13.5 ng/mL (0.0-4.0)
[2025-02-10] MEDS ORDERED: APIXABAN 5 MG TAB PO SCH (22:00)
== END 2025-02-04 14:55 | disposition home or self-care (01) | DRG 871 ==
LOC: ER 02:46 → OVERFLOW 06:59 → EAST 10:19
PROVIDERS: ADMIT Internal Medicine Geriatric Medicine; ATTEND Internal Medicine Geriatric Medicine
DX: A41.9 Sepsis, unspecified organism (principal); I21.A1 Myocardial infarction type 2; E87.20 Acidosis, unspecified; I82.411 Acute embolism and thrombosis of right femoral vein; I50.32 Chronic diastolic (congestive) heart failure; N39.0 Urinary tract infection, site not specified; I11.0 Hypertensive heart disease with heart failure; Z20.822 Contact with and (suspected) exposure to COVID-19; E78.5 Hyperlipidemia, unspecified
CPT/HCPCS: 36415; 71045; 71275; 74176; 80053; 81001; 83605; 83880; 84154; 84484; 85025; 85379; 87040; 87086; 87088; 87186; 87426; 87804; 93005; 93306; 93970; 96365; G0378

== ENCOUNTER 2025-02-07 11:21 | Emergency (ER) | payer BC ==
[~2025-02-07] VITALS: Ht 165.1 cm; Wt 93.1 kg
[~2025-02-07 11:21] MED LIST changes: +APIX5TAB PO; +CIPR500T4 PO; +TAMS0.4C39 PO
[2025-02-07] MEDS: diphenhydrAMINE HCL 50 MG/1 ML VL IV ONE (12:00)
[2025-02-07] MEDS: methylPREDNISolone SOD SUCC 125 MG/2 ML VL IV ONE (12:00)
--- NOTE | 2025-02-07 12:03 | ED.PDOC ---
History of Present Illness(SKN HPI Comments A 64 YEAR OLD MALE PRESENTS TO THE ED WITH COMPLAINT OF RASH. PATIENT STATES HE WAS RECENTLY PRESCRIBED LFOMAX, CIPRO 500MG, AND ELIQUIS 5MG DUE TO A UTI AND SUPERFICIAL THROMBOSIS THAT WAS DISCOVERED IN THIS ED 6 DAYS AGO WHEN HE WAS ADMITTED. PATIENT REPORTS HE TOOK THIS MEDICINE AND BEGAN TO EXPERIENCE A GENERALIZED BODY RASH SHORTLY AFTER. PATIENT IS NOT SURE WHICH MEDICATION IS CAUSING HIS RASH, BUT IS CONCERNED HE MAY BE HAVING AN ALLERGIC REACTION TO ONE OF THESE MEDICATIONS. PATIENT DENIES FEVER, CHILLS, SHORTNESS OF BREATH, CHEST PAIN, ABDOMINAL PAIN, NAUSEA, VOMITING, HEADACHE, OR OTHER COMPLAINTS. NO OTHER SYMPTOMS OR MODIFYING FACTORS AT THIS TIME. PATIENT IS ALERT, ORIENTED X 4, AND HAS STEADY GAIT. Chief Complaint: Allergic Reaction Time Seen by MD: 11:43 History of Present Illness: Nurses Notes, Medications, Allergies Allergies: Coded Allergies: NO KNOWN ALLERGIES (Unverified , 06/26/12) Home Meds Active Scripts Hydroxyzine Hcl (Hydroxyzine Hcl) 50 Mg Tab, 1 TAB PO BID, #30 TAB Prov:KAM CALLE 02/07/25 Prednisone (Prednisone) 20 Mg Tab, 60 MG PO DAILY, #24 MG Prov:KAM CALLE 02/07/25 Tamsulosin Hcl (Tamsulosin Hcl) 0.4 Mg Cap, 1 CAP PO DAILY for 30 Days, #30 CAP 5 Refills Prov:GAGE BARNETT 02/02/25 Ciprofloxacin Hcl (Ciprofloxacin Hcl) 500 Mg Tab, 1 TAB PO BID for 14 Days, #28 TAB Prov:GAGE BARNETT 02/02/25 Apixaban Base (ELIQUIS) 5 Mg Tab, 10 MG PO BID for 7 Days, #28 TAB 10MG BID X 7 DAYS THEN 5MG PO BID FOR AT LEAST 6 MONTHS FOR DVT/PE TREATMENT Prov:GAGE BARNETT 02/02/25 Apixaban Base (ELIQUIS) 5 Mg Tab, 5 MG PO BID for 30 Days, #60 TAB 6 Refills Prov:GAGE BARNETT 02/02/25 Reported Medications Pantoprazole Sodium Sesquihydr (Protonix) 40 Mg Tab, 40 MG PO DAILY, #30 TAB 03/11/23 Simvastatin (Simvastatin) 40 Mg Tab, 40 MG PO QPM, TAB 03/11/23 Lisinopril (Lisinopril) 10 Mg Tab, 10 MG PO 06/26/12 Information Source: Patient Mode of Arrival: Ambulatory Severity: Moderate Timing: Days Duration: Since onset, Days Prehospital treatment: None Location: Generalized Mechanism: Medication Developed: Generalized erythema, Pruritus, Rash Occurence: Indoors Object: None Condition of Object: None Retained Foreign Body: No Wound Type: None Immunization Status of Animal: NA Tetanus: UTD, Unknown History of: None Associated Signs and Symptoms: Redness Past Medical History PAST MEDICAL HISTORY: High Lipids, HTN Surgical History: Denies all surgeries Family History Family History: Reviewed,noncontributory to illness Social History Smoker: Non-Smoker Alcohol: Denies ETOH Use Drugs: Denies Drug Use Lives In: Home Constitutional: denies: chills, diaphoresis, fatigue, fever, malaise, sweats, weakness, others EENTM: denies: blurred vision, double vision, ear bleeding, ear discharge, ear drainage, ear pain, ear ringing, eye pain, eye redness, hearing loss, mouth pain, mouth swelling, nasal discharge, nose bleeding, nose congestion, nose pain, photophobia, tearing, throat pain, throat swelling, voice changes, others Respiratory: denies: cough, hemoptysis, orthopnea, SOB at rest, shortness of breath, SOB with excertion, stridor, wheezing, others Cardiovascular: denies: chest pain, dizzy spells, diaphoresis, Dyspnea on exertion, edema, irregular heart beat, left arm pain, lightheadedness, palpi tations, PND, syncope, others Gastrointestinal: denies: abdomen distended, abdominal pain, blood streaked bowels, constipated, diarrhea, dysphagia, difficulty swallowing, hematemesis, melena, nausea, poor appetite, poor fluid intake, rectal bleeding, rectal pain, vomiting, others Genitourinary: denies: burning, dysuria, flank pain, frequency, hematuria, incontinence, penile discharge, penile sore, pain, testicle pain, testicle swelling, urgency, others Neurological: denies: dizziness, fainting, headache, left sided numbness, left sided weakness, numbness, paresthesia, pre-existing deficit, right sided numbness, right sided weakness, seizure, speech problems, tingling, tremors, weakness, others Musculoskeletal: denies: back pain, gout, joint pain, joint swelling, muscle pain, muscle stiffness, neck pain, others Integumetry: reports: rash; denies: bruises, change in color, change in hair/nails, dryness, laceration, lesions, lumps, wounds, others Allergic/Immunocompromised: reports: Hives, Itching; denies: Difficulty Healing, Frequent Infections, others Hematologic/Lymphatic: denies: anemia, blood clots, easy bleeding, easy bruising, swollen glands, others Endocrine: denies: excessive hunger, excessive sweating, excessive thirst, excessive urination, flushing, intolerance to cold, intolerance to heat, unexplained weight gain, unexplained weight loss, others Psychiatric: denies: anxiety, bipolar disorder, depression, hopeless, panic disorder, schizophrenia, sleepless, suicidal, others All Other Systems: Reviewed and Negative Physical Exam General Appearance: No Apparent Distress, Normal HEENT: Normal ENT Inspection, PERRL/EOMI, Pharynx Normal, TMs Normal Neck: Full Range of Motion, Non-Tender, Normal, Normal Inspection Respiratory: Chest Non-Tender, Lungs Clear, No Accessory Muscle Use, No Respiratory Distress, Normal Breath Sounds Cardiovascular: No Edema, No JVD, No Murmur, No Gallop, Normal Peripheral Pulses, Regular Rate/Rhythm Breast Exam: Deferred Gastrointestinal: No Organomegaly, Non Tender, No Pulsatile Mass, Normal Bowel Sounds, Soft Genitalia: Deferred Pelvic: Deferred Rectal: Deferred Extremities: No calf tenderness, Normal capillary refill, Normal inspection, Normal range of motion, Non-tender, No pedal edema Musculoskeletal : Apperance: Normal Neurologic: Alert, vice president quality improvement II-XII nml as Tested, No Motor Deficits, Normal Affect, Normal Mood, No Sensory Deficits Cerebellar Function: Normal Reflexes: Normal Skin: Dry, Rash (ERYTHEMA SKIN RASH WITH HIVES ON UPPER AND LOWER BODY REGION, NO TENDERNESS, SWELLING AND OPEN WOUNDS. ), Warm Peripheral Pulses: 2+ carotid (R), 2+ carotid (L), 2+ dorsalis pedis (R), 2+ dorsalis pedis (L) Lymphatic: No Adenopathy Was a procedure done? Was a procedure done?: No Differential Diagnosis (INTG) Differential Diagnosis: N/A Differential Diagnosis: Atopic dermatitis, Contact Dermatitis, Drug Reaction, Tinea, Urticaria, Other (ALLERGIC REACTION) Differential Diagnosis: N/A Abscess: N/A Differential Diagnosis: N/A X-Ray, Labs, Meds, VS Vital Signs Date Time Temp Pulse Resp B/P (MAP) Pulse Ox O2 Delivery O2 Flow Rate FiO2 02/07/25 11:23 98.4 86 17 126/80 96 98.4 Lab Test 02/07/25 12:19 02/07/25 11:30 Range/Units White Blood Count 11.7 #H 4.4-10.8 10^3/uL Red Blood Count 5.56 4.5-5.90 10^6/uL Hemoglobin 15.4 13.5-17.5 g/dL Hematocrit 46.2 41.0-53.0 % Mean Corpuscular Volume 83.1 80.0-100.0 fL Mean Corpuscular Hemoglobin 27.6 L 28.0-32.0 pg Mean Corpuscular Hemoglobin Concent 33.2 32.0-36.0 g/dL Red Cell Distribution Width 13.9 11.8-14.3 % Platelet Count 352 # 140-450 10^3/uL Mean Platelet Volume 7.4 6.9-10.8 fL Neutrophils (%) (Auto) 53.6 37.0-80.0 % Lymphocytes (%) (Auto) 28.7 10.0-50.0 % Monocytes (%) (Auto) 11.0 0.0-12.0 % Eosinophils (%) (Auto) 6.4 0.0-7.0 % Basophils (%) (Auto) 0.3 0.0-2.0 % Neutrophils # (Auto) 6.2 1.6-8.6 10 ^3/uL Lymphocytes # (Auto) 3.3 0.4-5.4 10 ^3/uL Monocytes # (Auto) 1.3 0-1.3 10 ^3/uL Eosinophils # (Auto) 0.7 0-0.8 10 ^3/uL Basophils # (Auto) 0 0-0.2 10 ^3/uL Nucleated Red Blood Cells 0.0 % Sodium Level 140 136-145 mmol/L Potassium Level 4.0 3.5-5.1 mmol/L Chloride Level 103 98-107 mmol/L Carbon Dioxide Level 25 20-31 mmol/L Anion Gap 12 5-15 Blood Urea Nitrogen 16 9-23 mg/dL Creatinine 1.00 0.700-1.30 mg/dL Glomerular Filtration Rate Calc 84 >90 mL/min BUN/Creatinine Ratio 16.0 10.0-20.0 Serum Glucose 90 74-106 mg/dL Calcium Level 9.8 8.7-10.4 mg/dL Urine Color Light-yellow Yellow Urine Clarity Clear Clear Urine pH 5.5 5.0-9.0 Urine Specific Hood 1.019 1.001-1.035 Urine Protein Negative Negative Urine Ketones Negative Negative Urine Blood Trace H Negative /uL Urine Nitrite Negative Negative Urine Bilirubin Negative Negative Urine Urobilinogen Normal Negative mg/dL Urine Leukocyte Esterase Negative Negative /uL Urine RBC 1 0 - 3 /hpf Urine Microscopic WBC 1 0-3 /HPF Urine Squamous Epithelial Cells None seen <5 /hpf Urine Bacteria None seen None Seen /hpf Urine Glucose Normal Normal mg/dL Current Medications Medications (Trade) Dose Ordered Sig/Елена Route Start Time Stop Time Status Last Admin Methylprednisolone Sodium Succinate (Solu Medrol) 125 mg ONCE ONCE IV 02/07/25 12:00 02/07/25 12:02 DC 02/07/25 12:00 Epinephrine HCl 0.3 mg ONCE ONCE IM 02/07/25 12:00 02/07/25 12:02 DC 02/07/25 12:00 Diphenhydramine HCl (Benadryl Injection) 50 mg ONCE ONCE IV 02/07/25 12:00 02/07/25 12:02 DC 02/07/25 12:00 Epinephrine HCl 0.3 mg ONCE ONCE IM 02/07/25 13:30 02/07/25 13:31 DC 02/07/25 13:36 X-Ray, Labs, Meds, VS Comment EXTERNAL MEDICAL RECORDS REVIEWED: [NONE] INDEPENDENT HISTORIANS: [NONE] SOCIAL DETERMINANTS OF HEALTH: [NONE] LABS ORDERED: CBC, BMP, UA REVIEWED AND INTERPRETED RESULTS: NORMAL IMAGING ORDERED: NONE TREATMENTS ORDERED: EPINEPHRINE 0.3MG X2, SOLU-MEDROL 125MG IV, BENADRYL 50MG IV PROCEDURES PERFORMED: NONE CRITICAL CARE TIME: NONE I HAVE DISCUSSED THE PATIENT WITH THE ATTENDING PHYSICIAN DR. FRIAS AND HE AGREES WITH THE PATIENT'S PLAN OF CARE AND DISPOSITION. BASED ON HISTORY OF PRESENT ILLNESS, AND PHYSICAL EXAM, PATIENT WILL BE DISCHARGED HOME. DISCUSSED PLAN FOR DISCHARGE HOME WITH RX [VISTARIL 50MG AND PREDNISONE]. MEDICATION WARNINGS GIVEN. SHARED DECISION MAKING: PATIENT INSTRUCTED TO FOLLOW UP WITH PRIMARY CARE PROVIDER IN 1-2 DAYS FOR RE-EVALUATION OF SYMPTOMS. PATIENT VERBALIZES UNDERSTANDING TO RETURN TO ED FOR NEW OR WORSENING SYMPTOMS OR IF FOLLOW UP WITH PCP CANNOT BE OBTAINED. PATIENT FEELS COMFORTABLE GOING HOME AT THIS TIME. ALL QUESTIONS ADDRESSED AT TIME OF DISCHARGE. Time of 1ST Reevaluation: 13:40 Reevaluation 1ST: Improved Patient Education/Counseling: Diagnosis, Treatment, Need For Follow Up Family Education/Counseling: Diagnosis, Treatment, Need For Follow Up Medical Screening: No EMC Exist At This Time SEPSIS Sepsis Screen Date sepsis recognized/suspect: Feb 07, 2025 Time Sepsis recognized/suspect: 1123 Recent Procedure: No On Antibiotic Therapy: No Respiratory Rate >20: No Heart Rate >90: No Temp<36 C (96.8 F) or >38.3 C: No SBP <90 or MAP <65 mmHG: No New Acute Mental Status Change: No Is the patient on CPAP, BIPAP,: No Physician Orders Heplock Iv (02/07/25 ) Vital Signs Date Time Temp Pulse Resp B/P (MAP) Pulse Ox O2 Delivery O2 Flow Rate FiO2 02/07/25 11:23 98.4 86 17 126/80 96 98.4 Laboratory Tests Test 02/07/25 12:19 White Blood Count 11.7 10^3/uL (4.4-10.8) #H Medications Medications Dose Ordered Sig/Елена Route Start Time Stop Time Status Last Admin Dose Admin Diphenhydramine HCl 50 mg ONCE ONCE IV 02/07/25 12:00 02/07/25 12:02 DC 02/07/25 12:00 Epinephrine HCl 0.3 mg ONCE ONCE IM 02/07/25 12:00 02/07/25 12:02 DC 02/07/25 12:00 Epinephrine HCl 0.3 mg ONCE ONCE IM 02/07/25 13:30 02/07/25 13:31 DC 02/07/25 13:36 Methylprednisolone Sodium Succinate 125 mg ONCE ONCE IV 02/07/25 12:00 02/07/25 12:02 DC 02/07/25 12:00 Departure 1 Departure Time of Disposition: 13:40 Impression: Primary Impression: Allergic reaction Qualified Codes: T78.40XA - Allergy, unspecified, initial encounter Disposition: HOME / SELF CARE / HOMELESS Condition: Stable Additional Instructions: FOLLOW-UP WITH PCP IN 1 TO 2 DAYS. TAKE MEDICATIONS PRESCRIBED. RETURN TO ED FOR ANY NEW OR WORSENING SYMPTOMS. e-Prescriptions Hydroxyzine Hcl (Hydroxyzine Hcl) 50 Mg Tab 1 TAB PO BID, #30 TAB Prov: KAM CALLE 02/07/25 Prednisone (Prednisone) 20 Mg Tab 60 MG PO DAILY, #24 MG Prov: KAM CALLE 02/07/25 Discharged With: Self Critical Care Note Critical Care Time?: No Stability Stability form required: No I personally scribed for KAM CALLE ([email or web address]) on 02/07/25 at 12:03. Electronically submitted by Jerry Zayas ([email or web address]). KAM CALLE Feb 07, 2025 12:03
[2025-02-07 12:25] LABS: Urine Protein, UAD Negative (Negative)
[2025-02-07 12:33] LABS: Hematocrit 46.2 % (41.0-53.0); Hemoglobin 15.4 g/dL (13.5-17.5); Mean Corpuscular Hemoglobin 27.6 pg (28.0-32.0); Mean Corpuscular Volume 83.1 fL (80.0-100.0); Nucleated Red Blood Cells % 0.0 %
[2025-02-07 12:42] LABS: Chloride 103 mmol/L (98-107); Potassium 4.0 mmol/L (3.5-5.1); Sodium 140 mmol/L (136-145)
[2025-02-07 12:43] LABS: Anion Gap 12 (5-15); Calcium 9.8 mg/dL (8.7-10.4); Carbon Dioxide 25 mmol/L (20-31)
[2025-02-07 12:48] LABS: BUN/Creatinine Ratio 16.0 (10.0-20.0); Blood Urea Nitrogen 16 mg/dL (9-23); Glucose 90 mg/dL (74-106)
[2025-02-07] MEDS ORDERED: HYDR50TA69 PO (13:11)
[2025-02-07] MEDS ORDERED: PRED20TA2 PO (13:11)
[2025-02-07 13:43] VITALS: BP 131/72; PULSE 88; RESP 20; TEMP 98.5; O2SAT 96
== END 2025-02-07 13:50 | disposition home or self-care (01) ==
LOC: ER 11:21
DX: T78.40XA Allergy, unspecified, initial encounter (principal); I10 Essential (primary) hypertension; E78.5 Hyperlipidemia, unspecified; Z79.899 Other long term (current) drug therapy; Z87.440 Personal history of urinary (tract) infections; Z79.52 Long term (current) use of systemic steroids; Z79.01 Long term (current) use of anticoagulants; X58.XXXA Exposure to other specified factors, initial encounter
CPT/HCPCS: 36415; 80048; 81001; 85025; 96372; 96374; 96375; 99284; J0169; J1200; J2919

== ENCOUNTER → 2025-03-06 | Outpatient (CLI) | payer BC ==
[~2025-03-06] MED LIST changes: +HYDR50TA69 PO; +PRED20TA2 PO
[2025-03-06 07:16] LABS: Chloride 105 mmol/L (98-107); Potassium 4.6 mmol/L (3.5-5.1); Sodium 142 mmol/L (136-145)
[2025-03-06 07:17] LABS: Anion Gap 10 (5-15); Calcium 10.1 mg/dL (8.7-10.4); Carbon Dioxide 27 mmol/L (20-31)
[2025-03-06 07:22] LABS: BUN/Creatinine Ratio 13.0 (10.0-20.0); Blood Urea Nitrogen 12 mg/dL (9-23)
[2025-03-06 07:30] LABS: Glucose 114 mg/dL (74-106)
== END | disposition home or self-care (01) ==
LOC: LAB 06:14
PROVIDERS: ATTEND Urology
DX: R31.9 Hematuria, unspecified (principal)
CPT/HCPCS: 36415; 80048; 84153